=== PATIENT | male | born 1985 | race Caucasian/White ===

== ENCOUNTER 2020-11-15 12:11 | Outpatient (REF) | payer OTHER, SELFPAY ==
[2020-11-15 14:13] LABS: Glucose Urine UA NEG (NEG); Leukocyte Esterase Urine NEG (NEG); Nitrite Urine NEG (NEG); Specific Gravity - Urine <= 1.005 (1.005-1.025); Urine Blood NEG (NEG); Urine Ketones NEG (NEG); Urine Protein NEG (NEG-TRACE)
[2020-11-15 14:16] LABS: Appearance Urine CLEAR; Color Urine YELLOW
[2020-11-15 14:42] LABS: Alanine Aminotransferase 28 U/L (0-40); Albumin Level 4.5 g/dL (3.5-5.0); Alkaline Phosphatase 90 U/L (39-117); Anion Gap 16 (12-20); Aspartate Amino Transferase 24 U/L (5-37); Bilirubin Total 0.5 mg/dL (0.0-1.0); Blood Urea Nitrogen 12 mg/dL (9-16); Calcium 9.6 mg/dL (8.4-10.2); Carbon Dioxide 24 mmol/L (22-29); Chloride 105 mmol/L (96-108); Cholesterol 227 mg/dL; Estimated Glomerular Filt Rate > 60; Glucose Fasting 103 mg/dL (60-99); HDL Cholesterol 72 mg/dL; LDL Cholesterol Calculated 140 mg/dl; Potassium 4.7 mmol/L (3.3-5.1); Sodium 140 mmol/L (135-145); Total Protein 7.6 g/dL (6.5-8.0); Triglycerides 75 mg/dL
[2020-11-15 14:45] LABS: Syphilis Screen Nonreactive (Nonreactive)
[2020-11-15 14:46] LABS: TSH reflex Free T4 0.47 uIU/mL (0.32-4.0)
[2020-11-17 00:44] LABS: HIV AB/AG Nonreactive (Nonreactive)
[2020-11-18 08:12] LABS: Hepatitis B Surface Antigen Negative (Negative); ~HepC Num1 0.07 S/CO (0.00-0.79); ~Hepatitis C Antibody Nonreactive (Nonreactive)
[2020-11-18 08:49] LABS: HBc Num1 0.05 S/CO (0.00-0.79); HIV Num 1 0.09 S/CO (0.00-0.99); Hepatitis B Core Antibody Nonreactive (Nonreactive); ~Hepatitis B Surface Antibody REACTIVE (Nonreactive)
== END 2020-11-15 12:12 | disposition home or self-care (01) ==
LOC: HO.WFDLDS 12:11
PROVIDERS: Visit Provider Family Medicine
DX: Z00.00 Encounter for general adult medical examination without abnormal findings (principal); Z11.3 Encounter for screening for infections with a predominantly sexual mode of transmission; Z11.4 Encounter for screening for human immunodeficiency virus [HIV]
CPT/HCPCS: 36415; 80053; 80061; 81003; 84443; 86704; 86706; 86780; 86803; 87340; 87389

== ENCOUNTER 2021-03-12 11:22 | Outpatient (REF) | payer OTHER, SELFPAY ==
[2021-03-18 14:41] LABS: HSV 1 IgM IFA Negative (Negative); HSV 2 IgM IFA Negative (Negative)
== END 2021-03-12 11:23 | disposition home or self-care (01) ==
LOC: HO.WFDLDS 11:22
PROVIDERS: Visit Provider Family Medicine
DX: Z11.3 Encounter for screening for infections with a predominantly sexual mode of transmission (principal)
CPT/HCPCS: 36415; 86695; 86696

== ENCOUNTER 2021-10-21 10:49 | Outpatient (REF) | payer OTHER, SELFPAY ==
[2021-10-21 13:20] LABS: MANUAL DIFF FLAG NO
[2021-10-21 13:24] LABS: Basophils Percent Auto 0.2 % (0-2); Eosinophils Percent Auto 0.7 % (0-4); Hematocrit 48.6 % (42.0-52.0); Hemoglobin 16.6 g/dl (14.0-18.0); Imm Gran Abs Auto 0.02 X10*3/uL (0.00-0.03); Imm Gran Pct Auto 0.4 % (0.0-0.4); Lymphocytes Absolute Auto 1.3 X10*3/uL (1.2-4.9); Lymphocytes Percent Auto 22.2 % (20-40); Mean Corpuscular HGB Conc 34.2 g/dl (31.0-36.0); Mean Corpuscular Volume 99.6 fL (80.0-98.0); Mean Platelet Volume 9.7 fL (9.4-12.4); Monocytes Absolute Auto 0.4 X10*3/uL (0.1-1.2); Monocytes Percent Auto 7.2 % (2-11); Neutrophils Absolute Auto 3.9 x10*3/uL (2.0-8.3); Neutrophils Percent Auto 69.3 % (45-73); Platelet Count 244 X10*3/uL (160-400); Red Blood Count 4.88 X10*6/uL (4.60-5.80); Red Cell Distribution Width 11.8 % (11.0-16.0); White Blood Count 5.7 X10*3/uL (4.8-10.8)
[2021-10-21 13:35] LABS: Appearance Urine CLEAR; Color Urine YELLOW; Glucose Urine UA NEG (NEG); Leukocyte Esterase Urine NEG (NEG); Nitrite Urine NEG (NEG); PH 7.5 (5.0-8.0); Urine Blood NEG (NEG); Urine Ketones NEG (NEG); Urine Protein NEG (NEG-TRACE)
[2021-10-21 13:55] LABS: Alanine Aminotransferase 27 U/L (0-40); Albumin Level 4.3 g/dL (3.5-5.0); Alkaline Phosphatase 65 U/L (39-117); Anion Gap 12 (12-20); Aspartate Amino Transferase 19 U/L (5-37); Bilirubin Total 0.7 mg/dL (0.0-1.0); Blood Urea Nitrogen 5 mg/dL (9-16); Calcium 9.7 mg/dL (8.4-10.2); Carbon Dioxide 25 mmol/L (22-29); Chloride 108 mmol/L (96-108); Cholesterol 196 mg/dL; Estimated Glomerular Filt Rate > 60; Glucose Fasting 106 mg/dL (60-99); HDL Cholesterol 72 mg/dL; LDL Cholesterol Calculated 105 mg/dl; Potassium 4.2 mmol/L (3.3-5.1); Sodium 141 mmol/L (135-145); Total Protein 7.1 g/dL (6.5-8.0); Triglycerides 99 mg/dL
[2021-10-21 14:01] LABS: TSH reflex Free T4 0.43 uIU/mL (0.32-4.0)
[2021-10-21 14:45] LABS: Amphetamine Screen Urine Not Detected (Not Detect); Barbiturates, Urine Not Detected (Not Detect); Benzodiazepines Screen Urine Not Detected (Not Detect); Cannabinoid Screen Urine POSITIVE (Not Detect); Cocaine Screen Urine Not Detected (Not Detect); Fentanyl, urine Not Detected (Not Detect); Opiate Screen Urine Not Detected (Not Detect); Phencyclidine Screen Urine Not Detected (Not Detect)
[2021-10-27 07:50] LABS: Codeine, Ur NEGATIVE; Hydrocodone, Ur NEGATIVE; Hydromorphone, Ur NEGATIVE; Morphine, Ur NEGATIVE; Norhydrocodone, Ur NEGATIVE; Oxycodone, Ur NEGATIVE; Oxymorphone, Ur NEGATIVE
[2021-10-27 07:51] LABS: Noroxycodone, Ur NEGATIVE
== END 2021-10-21 10:50 | disposition home or self-care (01) ==
LOC: HO.WFDLDS 10:49
PROVIDERS: Visit Provider Family Medicine
DX: Z00.00 Encounter for general adult medical examination without abnormal findings (principal); F11.10 Opioid abuse, uncomplicated
CPT/HCPCS: 80053; 80061; 80307; 80364; 80365; 81003; 84443; 85025

== ENCOUNTER 2023-04-07 12:07 | Outpatient (REF) | payer OTHER, SELFPAY ==
[2023-04-07 14:35] LABS: Alanine Aminotransferase 21 U/L (0-40); Albumin Level 4.1 g/dL (3.5-5.0); Alkaline Phosphatase 63 U/L (39-117); Anion Gap 10 (12-20); Aspartate Amino Transferase 19 U/L (5-37); Bilirubin Total 0.4 mg/dL (0.0-1.0); Blood Urea Nitrogen 15 mg/dL (9-16); Calcium 9.2 mg/dL (8.4-10.2); Carbon Dioxide 24 mmol/L (22-29); Chloride 110 mmol/L (96-108); Cholesterol 208 mg/dL (<200); Estimated Glomerular Filt Rate > 60; Glucose Fasting 104 mg/dL (60-99); HDL Cholesterol 60 mg/dL (>40); LDL Cholesterol Calculated 129 mg/dL (<100); Potassium 4.4 mmol/L (3.3-5.1); Sodium 140 mmol/L (135-145); Triglycerides 98 mg/dL (<150)
[2023-04-07 14:42] LABS: Appearance Urine Clear; Color Urine Yellow; Glucose Urine UA Negative (Negative); Leukocyte Esterase Urine Negative (Negative); Nitrite Urine Negative (Negative); PH 5.5 (5.0-9.0); Urine Blood Negative (Negative); Urine Ketones Negative (Negative); Urine Protein Negative (Neg-Trace)
[2023-04-07 14:49] LABS: TSH reflex Free T4 0.43 uIU/mL (0.32-4.0)
[2023-04-07 14:59] LABS: Amphetamine Screen Urine Not Detected (Not Detect); Barbiturates, Urine Not Detected (Not Detect); Benzodiazepines Screen Urine Not Detected (Not Detect); Cannabinoid Screen Urine POSITIVE (Not Detect); Cocaine Screen Urine Not Detected (Not Detect); Fentanyl, urine Not Detected (Not Detect); Opiate Screen Urine Not Detected (Not Detect); Phencyclidine Screen Urine Not Detected (Not Detect)
[2023-04-07 15:07] LABS: Creatinine Urine 149.79 mg/dL; Microalbum/Creatinine Ratio Ur 3.3 ug/mg cr (<30)
== END 2023-04-07 12:08 | disposition home or self-care (01) ==
LOC: HO.WFDLDS 12:07
PROVIDERS: Visit Provider Family Medicine
DX: Z00.00 Encounter for general adult medical examination without abnormal findings (principal); I10 Essential (primary) hypertension; F41.9 Anxiety disorder, unspecified; F32.9 Major depressive disorder, single episode, unspecified; F41.1 Generalized anxiety disorder
CPT/HCPCS: 80053; 80061; 80307; 81003; 82043; 82570; 84443

== ENCOUNTER 2023-04-09 08:48 | Outpatient (AMB) | payer OTHER, SELFPAY ==
--- NOTE | 2023-04-09 08:51 | A.OFFPC_ITS ---
Vital Signs 04/09/23 08:52 Height 5 ft 11 in Weight 171 lb BMI 23.8 BP 126/80 Blood Pressure Location Rt brachial Position Sitting Respiration 12 Pulse 88 Pulse Source Pulse Oximeter Temp 97.6 F Temp Source Temporal Artery Scan Pulse Oximetry (%) 99 Oxygen Delivery Method Room Air Intake Visit Reasons: CPE with f/u labs and health maint. + f/u anxiety Intake Note: Patient currently doesn't have any concerns. Drapery Hemmer Automatic Required: No Accompanied by: Self / Same As Patient Allergies No Known Allergies Allergy (Verified 04/09/23 08:56) Tobacco use date assessed: 12/24/22 Dental Screening Dental Screen Date: 04/09/23 Did you have a dental visit in the last 12 months?: No Did you have a dental problem in the last 6 months where you did not have access to dental care?: No Was dental information given to patient?: Yes HPI CPE with f/u labs and health maint. + f/u anxiety HPI Details 37 y/o male presents for an extended exa m with f/u labs and health maintenance. Also f/u anxiety. Labs were drawn 04/07/23. Reviewed labs with pt. Triglycerides 98. TC 208. LDL 129. HDL 60. He is on clonazepam for his anxiety. Pt reports GERD daily. 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 1. Little interest or pleasure in doing things: more than half the days 2. Feeling down, depressed, or hopeless: more than half the days 3. Trouble falling or staying asleep, or sleeping too much: more than half the days 4. Feeling tired or having little energy: more than half the days 5. Poor appetite or overeating: more than half the days 6. Feeling bad about yourself - or that you are a failure or have let yourself or your family down: more than half the days 7. Trouble concentrating on things, such as reading the newspaper or watching television: more than half the days 8. Moving or speaking so slowly that other people could have noticed. Or the opposite - being so fidgety or restless that you have been moving around a lot more than usual: not at all 9. Thoughts that you would be better off or of hurting yourself in some way: not at all Total score: 14 Depression Screening Interpretation: Positive Source: Developed by Drs. Murray Jeter, Ann Vazquez, Kofi Edmondson and colleagues, with an educational charis from [employer]. Thrive Questionnaire Date Thrive assessed: 04/09/23 I am a: Patient What is your living situation today?: I have a steady place to live Within the past 12 months, did the food you bought not last and you didn't have the money to get more?: Never true Within the past 12 months, did you worry whether your food would run out before you got money to buy more?: Never true Do you have trouble paying for medicines?: No Do you have trouble getting transportation to medical appointments?: No Do you have trouble paying your heating and electricity bill?: No Do you have trouble taking care of your child, family member or friend?: No Do you have trouble with day-to-day activities such as bathing, preparing meals, shopping, managing finances, etc.?: No Are you currently unemployed and looking for a job?: No Are you interested in more education?: Yes Please select the resources that you would like help with: Education Currently or been in a relationship where the following occur: no concerns reported AUDIT C Alcohol Use Questionnaire (AUDIT-C) 1. How often do you have a drink containing alcohol?: 2-3 times a week 2. How many drinks containing alcohol do you have on a typical day when you are drinking?: 3 or 4 3. How often do you have six or more drinks on one occasion?: Less than monthly Total Score: 5 NETTE-7 AMB Questionnaire NETTE-7 Date NETTE - 7 assessed: 04/09/23 Feeling nervous, anxious, or on edge: 1 = Several days Not being able to stop or control worryin = Several days Worrying too much about different things: 3 = Nearly every day Trouble relaxin = Several days Being so restless that it is hard to sit still: 1 = Several days Becoming easily annoyed or irritable: 2 = More than half the days Feeling afraid as if something awful might happen: 1 = Several days Total NETTE-7 score (0-4 normal; 5-9 mild; 10-14 moderate; 15-21 severe): 10 Source: Developed by Drs. Murray Jeter, Ann Vazquez, Kofi Edmondson and colleagues, with an educational charis from [employer]. Review of Systems Const Denies chills, Denies fatigue, Denies fever(s), Denies headache(s) and Denies weakness Eyes Denies change in vision ENT Denies dizziness, Denies headache(s), Denies hearing loss, Denies nasal congestion, Denies sinus pain, Denies sinus pressure and Denies sore throat Card Denies chest pain, Denies lightheadedness, Denies dyspnea and Denies other (palpitations) Resp Denies cough, Denies dyspnea and Denies wheezing GI Denies abdominal pain, Denies melena, Denies hematochezia, Denies change in bowel habits, Denies dyspepsia and Denies nausea Denies hematuria and Denies dysuria Musc Denies abnormal gait, Denies myalgias, Denies arthralgias, Denies numbness and Denies tingling Skin/Breast Denies rash, Denies unusual bruising and Denies wounds Neuro Denies abnormal gait, Denies dizziness, Denies headache(s), Denies memory loss, Denies numbness, Denies Sensory deficit (Neuro), Denies tingling and Denies weakness Psych Reports anxiety, Denies depression and Denies memory loss Endo Denies cold intolerance, Denies fatigue, Denies heat intolerance, Denies polydipsia and Denies polyuria Ishmael/Lymph Denies easy bleeding and Denies easy bruising Aller/Immun Denies wheezing Physical exam (Primary Care) Vital Signs: Last Vital Signs Temp 97.6 F 04/09/23 08:52 Pulse 88 04/09/23 08:52 Resp 12 04/09/23 08:52 BP 126/80 04/09/23 08:52 Pulse Ox 99 04/09/23 08:52 Oxygen Delivery Method Room Air 04/09/23 08:52 BMI result Body Mass Index 23.8 Tobacco/Smoking Status: Tobacco use Status Tobacco use date assessed 12/24/22 04/09/23 09:02 Patient Tobacco Use Status Former Tobacco user 04/09/23 09:02 e-Cigarette/Vaping Use Never Used 04/09/23 09:02 PHQ-9: PHQ-9 Score PHQ-9: Total score 14 04/09/23 10:05 Depression Screening Interpretation: Positive Thrive Assessment: Date of Thrive Assessment Date Thrive assessed 04/09/23 04/09/23 09:02 Currently or been in a relationship where the following occur: no concerns reported Const General: no acute distress, well developed, alert and awake Nutritional Appearance: well nourished Orientation/consciousness: patient oriented x3 HENMT Head: Yes normocephalic and Yes atraumatic Ears: hearing grossly normal bilaterally and TM's normal bilaterally General nose exam: Normal external nose present and Normal nares present Mouth: Normal oral and palatal mucosa present and moist mucous membranes Teeth and gingiva: dentition normal Throat: Yes posterior oropharynx normal Eyes General: appearance normal, both eyes and all related structures Pupils: Equal, round and reactive pupils present and Pupil accommodation reflex normal EOM: EOMs intact bilaterally Neck Neck: Yes normal visual inspection, Yes no lymphadenopathy and Yes trachea midline Thyroid: Thyroid normal Carotids: no bruits Lymphatic: no lymphadenopathy noted Chest Chest palpation & inspection: normal inspection of the chest Resp Effort & Inspection: normal respiratory effort Auscultation: clear to auscultation bilaterally Cardio Rate: regular rate Rhythm: regular rhythm Heart sounds: S1 normal heart sound present, S2 normal heart sound present, no gallops, no murmurs and no rubs Bruits: no abdominal aortic bruits and no carotid bruits GI Palpation (GI): No Abdominal aortic bruit present, Soft to palpation, nontender, No hepatosplenomegaly present and No Rebound tenderness present Auscultation: normal bowel sounds General: Yes no CVA tenderness Back/Spine/Pelvis Back: no CVA tenderness Cervical Spine: cervical ROM normal and No Cervical spine tenderness Thoracic/Lumbar Spine: thoraco-lumbar ROM normal, No pain with thoraco-lumbar ROM, No thoracic spinal tenderness and No lumbar spinal tenderness Skin Lesions: no lesions Rashes: no rashes Trauma: no lacerations or abrasions Wounds: no wounds Nails: normal Neuro General: patient oriented x3 Cranial nerves: Yes Equal, round and reactive pupils present Cognition (Neuro): normal cognition Gait exam (Neuro): Normal gait present Motor exam (neuro): 5/5 motor strength present throughout Sensory Exam: No Sensory deficit (Neuro) Deep tendon reflexes (DTR's): Right patellar reflex intensity grade: 2+ and Left patellar reflex intensity grade: 2+ Extrem General: Yes normal to inspection and No edema Psych Other: Peculiar and anxious affect Appearance: grossly normal Affect: No normal affect Attitude: cooperative Thought process: Normal thought process present Assessment and Plan Assessment & Plan (1) Anxiety and depression: Code(s): F41.9 - Anxiety disorder, unspecified; F32.9 - Major depressive disorder, single episode, unspecified Plan: Ongoing anxiety and depression. Longstanding treatment with clonazepam monotherapy. Fairly stable but does have symptoms essentially every day. We discussed that when he is ready he can let me know and we would consider using I a medication in another class such as an SSRI for better long-term, daily management. Patient is apprehensive Will continue to discuss and follow-up with patient Urine drug screen did not show clonazepam in his urine. He is likely taking his medication. Likely just not being picked up on initial screening. Will use benzodiazepine GCMS testing which I suspect will show the presence of his medication. (2) GERD (gastroesophageal reflux disease): Code(s): K21.9 - Gastro-esophageal reflux disease without esophagitis Plan: Frequent GERD symptoms Trial omeprazole May need a referral to GI (3) Adult general medical exam: Code(s): Z00.00 - Encounter for general adult medical examination without abnormal findin gs Plan: 37-year-old male presents for extended exam Orders: Orders Drug Screen Urine Today F32.9 - Major depressive disorder, single episode, unspecified, F41.9 - Anxiety disorder, unspecified Benzodiazepine,GC/MS Urine Today F32.9 - Major depressive disorder, single episode, unspecified, F41.9 - Anxiety disorder, unspecified Medications: New omeprazole 20 mg PO DAILY 30 caps 2RF 30 days Coding Level of Care Code Est Pt Level 4 (64932) Diagnoses Anxiety and depression F41.9; F32.9 GERD (gastroesophageal reflux disease) K21.9 Adult general medical exam Z00.00
[2023-04-09 08:52] VITALS: BP 126/80; PULSE 88; RESP 12; TEMP 36.4; O2SAT 99; BMI 23.8
== END 2023-04-09 09:45 | disposition home or self-care (01) ==
PROVIDERS: PCP Family Medicine; Visit Provider Family Medicine
DX: Z00.00 Encounter for general adult medical examination without abnormal findings (principal); F41.9 Anxiety disorder, unspecified; F32.9 Major depressive disorder, single episode, unspecified; K21.9 Gastro-esophageal reflux disease without esophagitis
CPT/HCPCS: 99395

== ENCOUNTER 2023-04-09 10:05 | Outpatient (REF) | payer OTHER, SELFPAY ==
[2023-04-09 13:01] LABS: Amphetamine Screen Urine Not Detected (Not Detect); Barbiturates, Urine Not Detected (Not Detect); Benzodiazepines Screen Urine Not Detected (Not Detect); Cannabinoid Screen Urine POSITIVE (Not Detect); Cocaine Screen Urine Not Detected (Not Detect); Fentanyl, urine Not Detected (Not Detect); Opiate Screen Urine Not Detected (Not Detect); Phencyclidine Screen Urine Not Detected (Not Detect)
[2023-04-15 12:32] LABS: Alphahydroxymidazolam,GCMS Ur NEGATIVE; Alphahydroxytriazolam, GCMS Ur NEGATIVE; Alprazolam, GCMS Urine NEGATIVE; Flurazepam Metabolite,GCMS Ur NEGATIVE; Lorazepam GCMS Urine NEGATIVE; Nordiazepam, GCMS Urine NEGATIVE; Oxazepam, GCMS Urine NEGATIVE; Temazepam, GCMS Urine NEGATIVE
== END 2023-04-09 10:06 | disposition home or self-care (01) ==
LOC: HO.LAB 10:05
PROVIDERS: Visit Provider Family Medicine
DX: F41.9 Anxiety disorder, unspecified (principal); F32.9 Major depressive disorder, single episode, unspecified
CPT/HCPCS: 80307; 80346

== ENCOUNTER 2023-10-04 16:20 | Outpatient (AMB) | payer OTHER, SELFPAY ==
--- NOTE | 2023-10-04 16:32 | A.OFFPC_ITS ---
Vital Signs 10/04/23 16:33 10/04/23 17:29 Height 5 ft 11 in Weight 192 lb BMI 26.8 BP 156/93 H 148/82 H Blood Pressure Location Rt brachial Rt brachial Position Sitting Pulse 99 Pulse Oximetry (%) 98 Oxygen Delivery Method Room Air Intake Visit Reasons: f/u anxiety Intake Note: Patient is here to follow up on anxiety today. Allergies No Known Allergies Allergy (Verified 10/04/23 16:34) Tobacco use date assessed: 10/04/23 HPI f/u anxiety HPI Details 37 y/o male presents to f/u anxiety. He is on clonazepam therapy. Pt reports ongoing severe anxiety. Blood pressure today 156/93. 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 1. Little interest or pleasure in doing things: nearly every day 2. Feeling down, depressed, or hopeless: nearly every day 3. Trouble falling or staying asleep, or sleeping too much: nearly every day 4. Feeling tired or having little energy: nearly every day 5. Poor appetite or overeating: nearly every day 6. Feeling bad about yourself - or that you are a failure or have let yourself or your family down: nearly every day 7. Trouble concentrating on things, such as reading the newspaper or watching television: nearly every day 8. Moving or speaking so slowly that other people could have noticed. Or the opposite - being so fidgety or restless that you have been moving around a lot more than usual: not at all 9. Thoughts that you would be better off or of hurting yourself in some way: not at all Total score: 21 Depression Screening Interpretation: Positive Depression Screening Done: Yes Source: Developed by Drs. Murray Jeter, Kofi Smith and colleagues, with an educational charis from [employer]. Thrive Questionnaire Date Thrive assessed: 04/09/23 NETTE-7 AMB Questionnaire NETTE-7 Date NETTE - 7 assessed: 10/04/23 Feeling nervous, anxious, or on edge: 3 = Nearly every day Not being able to stop or control worryin = Nearly every day Worrying too much about different things: 3 = Nearly every day Trouble relaxin = Nearly every day Being so restless that it is hard to sit still: 3 = Nearly every day Becoming easily annoyed or irritable: 3 = Nearly every day Feeling afraid as if something awful might happen: 1 = Several days Total NETTE-7 score (0-4 normal; 5-9 mild; 10-14 moderate; 15-21 severe): 19 Source: Developed by Drs. Murray Jeter, Ann Vazquez, Kofi Edmondson and colleagues, with an educational charis from [employer]. Review of Systems Const Denies chills, Denies fatigue, Denies fever(s), Denies headache(s) and Denies weakness ENT Denies dizziness and Denies headache(s) Card Denies dyspnea Resp Denies cough, Denies dyspnea, Denies wheezing and Denies other (shortness of breath) Musc Denies numbness and Denies tingling Neuro Denies dizziness, Denies headache(s), Denies numbness, Denies tingling and Denies weakness Psych Reports anxiety and Reports depression Endo Denies fatigue Aller/Immun Denies wheezing Physical exam (Primary Care) Vital Signs: Last Vital Signs Pulse 99 10/04/23 16:33 BP 156/93 H 10/04/23 16:33 Pulse Ox 98 10/04/23 16:33 Oxygen Delivery Method Room Air 10/04/23 16:33 BMI result Body Mass Index 26.8 Tobacco/Smoking Status: Tobacco use Status Tobacco use date assessed 10/04/23 10/04/23 16:42 Patient Tobacco Use Status Former Tobacco user 10/04/23 16:42 e-Cigarette/Vaping Use Never Used 10/04/23 16:42 PHQ-9: PHQ-9 Score PHQ-9: Total score 21 10/04/23 17:27 Depression Screening Interpretation: Positive Thrive Assessment: Date of Thrive Assessment Date Thrive assessed 04/09/23 10/04/23 16:42 Const General: well developed; No acute distress Nutritional Appearance: well nourished Orientation/consciousness: patient oriented x3 HENMT Head: Yes normocephalic and Yes atraumatic Eyes General: appearance normal, both eyes and all related structures Pupils: Equal, round and reactive pupils present EOM: EOMs intact bilaterally Resp Effort & Inspection: normal respiratory effort Neuro General: patient oriented x3 and gait normal Cranial nerves: Yes Equal, round and reactive pupils present Psych Affect: normal affect Assessment and Plan Assessment & Plan (1) Anxiety and depression: Code(s): F41.9 - Anxiety disorder, unspecified; F32.9 - Major depressive disorder, single episode, unspecified Plan: Currently?just?on?clonazepam. Will?try?Abilify?and?he?can?use?this?at?bedtime?which?may?help?with?sleep We?can?follow-up?in?about?a?month (2) Elevated blood pressure reading: Code(s): R03.0 - Elevated blood-pressure reading, without diagnosis of hypertension Plan: Recommended?he?return?in?a?mon ?for?recheck?but?he?says?he?will?check?his?blood?pressures?in?the?community?an d?let?me?know?if?they?are?running?high. Will?follow-up?at?his?next?visit Medications: New aripiprazole (Abilify) 2 mg PO BEDTIME 30 days 30 tabs 2RF Coding Level of Care Code Est Pt Level 3 (97009) Diagnoses Anxiety and depression F41.9; F32.9 Elevated blood pressure reading R03.0
[2023-10-04 16:33] VITALS: BP 156/93; PULSE 99; O2SAT 98; BMI 26.8
[2023-10-04 17:29] VITALS: BP 148/82
== END 2023-10-04 17:56 | disposition home or self-care (01) ==
PROVIDERS: PCP Family Medicine; Visit Provider Family Medicine
DX: F41.9 Anxiety disorder, unspecified (principal); F32.9 Major depressive disorder, single episode, unspecified; R03.0 Elevated blood-pressure reading, without diagnosis of hypertension
CPT/HCPCS: 99213

== ENCOUNTER 2024-01-04 09:27 | Outpatient (AMB) | payer OTHER, SELFPAY ==
[2024-01-04 09:29] VITALS: BP 132/80; PULSE 98; O2SAT 98; BMI 27.8
--- NOTE | 2024-01-04 09:29 | A.OFFPC_ITS ---
Vital Signs 01/04/24 09:29 Height 5 ft 11 in Weight 199 lb 6 oz BMI 27.8 BP 132/80 Blood Pressure Location Lt brachial Position Sitting Pulse 98 Pulse Source Pulse Oximeter Pulse Oximetry (%) 98 Oxygen Delivery Method Room Air Intake Visit Reasons: f/u Anxiety & Depression Intake Note: Patient is here for follow up on anxiety and depression. Patient would like 90 day refills of Omeprazole, due to insurance reasons. Allergies No Known Allergies Allergy (Verified 01/04/24 09:33) Tobacco use date assessed: 01/04/24 Dental Screening Dental Screen Date: 01/04/24 Did you have a dental visit in the last 12 months?: Yes Did you have a dental problem in the last 6 months where you did not have access to dental care?: No Was dental information given to patient?: Patient has dentist HPI f/u Anxiety & Depression HPI Details 38 y/o male presents to f/u anxiety & de pression. Had continued clonazepam and added Abilify. PHQ-9 7, NETTE-7 7 today. Pt notes current medication regimen has been helping. 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 1. Little interest or pleasure in doing things: several days 2. Feeling down, depressed, or hopeless: several days 3. Trouble falling or staying asleep, or sleeping too much: several days 4. Feeling tired or having little energy: several days 5. Poor appetite or overeating: not at all 6. Feeling bad about yourself - or that you are a failure or have let yourself or your family down: not at all 7. Trouble concentrating on things, such as reading the newspaper or watching television: nearly every day 8. Moving or speaking so slowly that other people could have noticed. Or the opposite - being so fidgety or restless that you have been moving around a lot more than usual: not at all 9. Thoughts that you would be better off or of hurting yourself in some way: not at all Total score: 7 Depression Screening Interpretation: Positive Depression Screening Done: Yes 25777 - PHQ-9 Billing: Yes Source: Developed by Drs. Murray Jeter, Ann Vazquez, Kofi Edmondson and colleagues, with an educational charis from [employer]. Thrive Questionnaire Date Thrive assessed: 04/09/23 NETTE-7 AMB Questionnaire NETTE-7 Date NETTE - 7 assessed: 01/04/24 Feeling nervous, anxious, or on edge: 1 = Several days Not being able to stop or control worryin = Several days Worrying too much about different things: 1 = Several days Trouble relaxin = Several days Being so restless that it is hard to sit still: 1 = Several days Becoming easily annoyed or irritable: 1 = Several days Feeling afraid as if something awful might happen: 1 = Several days Total NETTE-7 score (0-4 normal; 5-9 mild; 10-14 moderate; 15-21 severe): 7 Source: Developed by Drs. Murray Jeter, Ann Vazquez, Kofi Edmondson and colleagues, with an educational charis from [employer]. NETTE-7 Assessment Billing NETTE-7 Assessment Tool: NETTE-7 Assessment 82352 Review of Systems Const Denies chills, Denies fatigue, Denies fever(s), Denies headache(s) and Denies weakness ENT Denies dizziness and Denies headache(s) Card Denies dyspnea Resp Denies cough, Denies dyspnea, Denies wheezing and Denies other (shortness of breath) Musc Denies numbness and Denies tingling Neuro Denies dizziness, Denies headache(s), Denies numbness, Denies tingling and Denies weakness Psych Reports anxiety and Reports depression Endo Denies fatigue Aller/Immun Denies wheezing Physical exam (Primary Care) Vital Signs: Last Vital Signs Pulse 98 01/04/24 09:29 BP 132/80 01/04/24 09:29 Pulse Ox 98 01/04/24 09:29 Oxygen Delivery Method Room Air 01/04/24 09:29 BMI result Body Mass Index 27.8 Tobacco/Smoking Status: Tobacco use Status Tobacco use date assessed 01/04/24 01/04/24 09:36 Patient Tobacco Use Status Former Tobacco user 01/04/24 09:36 e-Cigarette/Vaping Use Never Used 01/04/24 09:36 PHQ-9: PHQ-9 Score PHQ-9: Total score 7 01/04/24 09:40 Depression Screening Interpretation: Positive Thrive Assessment: Date of Thrive Assessment Date Thrive assessed 04/09/23 01/04/24 09:36 Const General: well developed; No acute distress Nutritional Appearance: well nourished Orientation/consciousness: patient oriented x3 HENMT Head: Yes normocephalic and Yes atraumatic Eyes General: appearance normal, both eyes and all related structures Pupils: Equal, round and reactive pupils present EOM: EOMs intact bilaterally Resp Effort & Inspection: normal respiratory effort Auscultation: clear to auscultation bilaterally Cardio Rate: regular rate Rhythm: regular rhythm Heart sounds: S1 normal heart sound present, S2 normal heart sound present, no gallops, no murmurs and no rubs Neuro General: patient oriented x3 and gait normal Cranial nerves: Yes Equal, round and reactive pupils present Psych Affect: normal affect Assessment and Plan Assessment & Plan (1) Anxiety and depression: Code(s): F41.9 - Anxiety disorder, unspecified; F32.9 - Major depressive disorder, single episode, unspecified Plan: Stable. Had?started?Abilify?at?last?visit?and?this?seems?to?have?improved?anxiety. Also?uses?clonazepam?as?prescribed Last?urine?drug?screen?was?appropriate Will?increase?Abilify?slightly.??He?will?let?me?know?if?that?causes? any?problems. Continue?clonazepam?as?prescribed (2) GERD (gastroesophageal reflux disease): Code(s): K21.9 - Gastro-esophageal reflux disease without esophagitis Plan: Taking?omeprazole?which?helps.??Increasing?script?to?90?day?prescription (3) Elevated fasting blood sugar: Code(s): R73.01 - Impaired fasting glucose Plan: Patient?had?elevated?blood?pressure?at?last?visit Improved?but?still?mildly?in?prehypertensive?range Encouraged?diet,?exercise?and?plenty?of?sleep We?can?follow?this Medications: Changed From aripiprazole (Abilify) 2 mg PO BEDTIME 30 days 30 tabs 2RF To aripiprazole 5 mg PO BEDTIME 90 days 90 tabs 2RF From omeprazole 20 mg PO DAILY 30 days 30 caps 2RF To omeprazole 20 mg PO DAILY 90 days 90 caps 3RF Refilled omeprazole 20 mg PO DAILY 30 days 30 caps 2RF clonazepam 0.5 mg PO BID 1 month PRN 60 tabs 0RF anxiety Coding Level of Care Code Est Pt Level 4 (93692) Diagnoses Anxiety and depression F41.9; F32.9 GERD (gastroesophageal reflux disease) K21.9 Elevated fasting blood sugar R73.01 Additional Codes NETTE-7 Assessment Billing - NETTE-7 Assessment Tool: NETTE-7 Assessment 45308 ([id number])
== END 2024-01-04 09:51 | disposition home or self-care (01) ==
PROVIDERS: PCP Family Medicine; Visit Provider Family Medicine
DX: F41.9 Anxiety disorder, unspecified (principal); F32.9 Major depressive disorder, single episode, unspecified; K21.9 Gastro-esophageal reflux disease without esophagitis; R73.01 Impaired fasting glucose
CPT/HCPCS: 96127; 99214

== ENCOUNTER 2024-04-07 08:41 | Outpatient (AMB) | payer OTHER, SELFPAY ==
--- NOTE | 2024-04-07 08:48 | A.OFFPC_ITS ---
Vital Signs 04/07/24 08:51 Height 5 ft 11 in Weight 199 lb 6 oz BMI 27.8 BP 110/80 Blood Pressure Location Rt brachial Position Sitting Respiration 16 Pulse 92 Pulse Source Pulse Oximeter Temp 97.9 F Temp Source Tympanic Pulse Oximetry (%) 98 Oxygen Delivery Method Room Air Intake Visit Reasons: f/u Anxiety & Depression meds Intake Note: f/u anxiety and depression Allergies No Known Allergies Allergy (Verified 04/07/24 08:48) Medication List - Last Reconciled 04/07/24 by Titus Tatum MD aripiprazole 5 mg PO BEDTIME 90 days clonazepam 0.5 mg PO BID PRN 1 month omeprazole 20 mg PO DAILY 90 days Tobacco use date assessed: 01/04/24 Dental Screening Dental Screen Date: 01/04/24 HPI f/u Anxiety & Depression meds HPI Details 38 y/o male presents to f/u anxiety/depr ession. He feels mood is fairly level though he notes mood is all over the place at times. Has difficulty with motivation and notes anxiety. Denies any SI/HI. He is on clonazepam 0.5mg. He notes he does not feel like it is doing much. PHQ-9 5, NETTE-7 18 today. HPI Comments History of Present Illness Details Documentation assistance for Titus Tatum MD, was provided by Kenrick Stock, Shuttle Fitting Supervisor on 04/07/2024 at 9:10 AM MARYLU. I, Dr. Tatum, have read, observed, and verified documentation. 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 1. Little interest or pleasure in doing things: not at all 2. Feeling down, depressed, or hopeless: several days 3. Trouble falling or staying asleep, or sleeping too much: several days 4. Feeling tired or having little energy: several days 5. Poor appetite or overeating: several days 6. Feeling bad about yourself - or that you are a failure or have let yourself or your family down: not at all 7. Trouble concentrating on things, such as reading the newspaper or watching television: several days 8. Moving or speaking so slowly that other people could have noticed. Or the opposite - being so fidgety or restless that you have been moving around a lot more than usual: not at all 9. Thoughts that you would be better off or of hurting yourself in some way: not at all Total score: 5 Depression Screening Interpretation: Positive Depression Screening Follow-up: New Medication prescribed Depression Screening Done: Yes 94242 - PHQ-9 Billing: Yes Source: Developed by Drs. Murray Jeter, Ann Vazquez, Kofi Edmondson and colleagues, with an educational charis from [employer]. Thrive Questionnaire Date Thrive assessed: 04/09/23 AUDIT C Alcohol Use Questionnaire (AUDIT-C) 2. How many drinks containing alcohol do you have on a typical day when you are drinking?: 1 or 2 3. How often do you have six or more drinks on one occasion?: Less than monthly Total Score: 1 NETTE-7 AMB Questionnaire NETTE-7 Date NETTE - 7 assessed: 04/07/24 Feeling nervous, anxious, or on edge: 3 = Nearly every day Not being able to stop or control worryin = Nearly every day Worrying too much about different things: 3 = Nearly every day Trouble relaxin = Nearly every day Being so restless that it is hard to sit still: 2 = More than half the days Becoming easily annoyed or irritable: 3 = Nearly every day Feeling afraid as if something awful might happen: 1 = Several days Total NETTE-7 score (0-4 normal; 5-9 mild; 10-14 moderate; 15-21 severe): 18 Source: Developed by Drs. Murray Jeter, Ann Vazquez, Kofi Edmondson and colleagues, with an educational charis from [employer]. NETTE-7 Assessment Billing NETTE-7 Assessment Tool: NETTE-7 Assessment 87617 Review of Systems Const Denies chills, Denies fatigue, Denies fever(s), Denies headache(s) and Denies weakness ENT Denies dizziness and Denies headache(s) Card Denies dyspnea Resp Denies cough, Denies dyspnea, Denies wheezing and Denies other (shortness of breath) Musc Denies numbness and Denies tingling Neuro Denies dizziness, Denies headache(s), Denies numbness, Denies tingling and Denies weakness Psych Reports anxiety and Reports depression Endo Denies fatigue Aller/Immun Denies wheezing Physical exam (Primary Care) Vital Signs: Last Vital Signs Temp 97.9 F 04/07/24 08:51 Pulse 92 04/07/24 08:51 Resp 16 04/07/24 08:51 BP 110/80 04/07/24 08:51 Pulse Ox 98 04/07/24 08:51 Oxygen Delivery Method Room Air 04/07/24 08:51 BMI result Body Mass Index 27.8 Tobacco/Smoking Status: Tobacco use Status Tobacco use date assessed 01/04/24 04/07/24 08:53 Patient Tobacco Use Status Former Tobacco user 04/07/24 08:53 e-Cigarette/Vaping Use Never Used 04/07/24 08:53 PHQ-9: PHQ-9 Score PHQ-9: Total score 5 04/07/24 08:53 Depression Screening Interpretation: Positive Depression Screening Follow-up: New Medication prescribed Thrive Assessment: Date of Thrive Assessment Date Thrive assessed 04/09/23 04/07/24 08:53 Const General: well developed; No acute distress Nutritional Appearance: well nourished Orientation/consciousness: patient oriented x3 HENMT Head: Yes normocephalic and Yes atraumatic Eyes General: appearance normal, both eyes and all related structures Pupils: Equal, round and reactive pupils present EOM: EOMs intact bilaterally Resp Effort & Inspection: normal respiratory effort Auscultation: clear to auscultation bilaterally Cardio Rate: regular rate Rhythm: regular rhythm Heart sounds: S1 normal heart sound present, S2 normal heart sound present, no gallops, no murmurs and no rubs Neuro General: patient oriented x3 and gait normal Cranial nerves: Yes Equal, round and reactive pupils present Psych Affect: normal affect Assessment and Plan Assessment & Plan (1) Anxiety and depression: Code(s): F41.9 - Anxiety disorder, unspecified; F32.9 - Major depressive disorder, single episode, unspecified Plan: Ongoing?anxiety?and?likely?depression. Patient?declines?therapist?though?I?advised?him?that?this?would?be?an?important? part?of?his?treatment. Will?discontinue?aripiprazole?as?he?does?not?think?this?is?helping. Will?change?clonazepam?to?lorazepam?as?he?does?not?think?the?clonazepam?is?helpi ng?much. Have?tried?numerous?medications?including?citalopram,?buspirone?and?others. Will?try?venlafaxine. Denies SI/HI Reiterated?to?patient?that?if?he?is?not?getting?much?relief?we?should?strongly?c onsider?a?referral?to?Psychiatry/therapy. Medications: New venlafaxine 75 mg PO BID 30 days 60 tabs 3RF lorazepam [facility] Verified. 0.5 mg PO BID 30 days PRN 60 tabs 0RF anxiety F32.9 - Major depressive disorder, single episode, unspecified, F41.9 - Anxiety disorder, unspecified Discontinued aripiprazole Discontinued Reason: Doctor's Order 5 mg PO BEDTIME 90 days 90 tabs 2RF clonazepam Discontinued Reason: Doctor's Order 0.5 mg PO BID 1 month PRN 60 tabs 0RF anxiety Coding Level of Care Code Est Pt Level 3 (41129) Diagnoses Anxiety and depression F41.9; F32.9 Additional Codes NETTE-7 Assessment Billing - NETTE-7 Assessment Tool: NETTE-7 Assessment 24270 ([id number])
[2024-04-07 08:51] VITALS: BP 110/80; PULSE 92; RESP 16; TEMP 36.6; O2SAT 98; BMI 27.8
== END 2024-04-07 09:21 | disposition home or self-care (01) ==
PROVIDERS: PCP Family Medicine; Visit Provider Family Medicine
DX: F41.9 Anxiety disorder, unspecified (principal); F32.9 Major depressive disorder, single episode, unspecified
CPT/HCPCS: 96127; 99213

== ENCOUNTER 2024-07-04 12:57 | Outpatient (REF) | payer OTHER, SELFPAY ==
[2024-07-04 14:20] LABS: MANUAL DIFF FLAG NO
[2024-07-04 14:26] LABS: Basophils Percent Auto 0.5 % (0-2); Eosinophils Absolute Auto 0.1 X10*3/uL (0.0-0.4); Eosinophils Percent Auto 0.6 % (0-4); Hematocrit 46.9 % (42.0-52.0); Hemoglobin 16.4 g/dl (14.0-18.0); Imm Gran Abs Auto 0.03 X10*3/uL (0.00-0.03); Imm Gran Pct Auto 0.4 % (0.0-0.4); Lymphocytes Absolute Auto 1.6 X10*3/uL (1.2-4.9); Lymphocytes Percent Auto 19.6 % (20-40); Mean Corpuscular Hemoglobin 33.3 pg (27.0-33.0); Mean Corpuscular Volume 95.1 fL (80.0-98.0); Mean Platelet Volume 9.1 fL (9.4-12.4); Monocytes Absolute Auto 0.5 X10*3/uL (0.1-1.2); Monocytes Percent Auto 6.4 % (2-11); Neutrophils Absolute Auto 5.9 x10*3/uL (2.0-8.3); Neutrophils Percent Auto 72.5 % (45-73); Platelet Count 255 X10*3/uL (160-400); Red Blood Count 4.93 X10*6/uL (4.60-5.80); Red Cell Distribution Width 11.6 % (11.0-16.0); White Blood Count 8.2 X10*3/uL (4.8-10.8)
[2024-07-04 15:26] LABS: Albumin Level 4.3 g/dL (3.5-5.0); Anion Gap 15 (12-20); Aspartate Amino Transferase 31 U/L (5-37); Bilirubin Total 0.4 mg/dL (0.0-1.0); Blood Urea Nitrogen 10 mg/dL (9-16); Calcium 9.5 mg/dL (8.4-10.2); Carbon Dioxide 23 mmol/L (22-29); Chloride 106 mmol/L (96-108); Cholesterol 254 mg/dL (<200); Estimated Glomerular Filt Rate > 60; Glucose Fasting 97 mg/dL (60-99); HDL Cholesterol 57 mg/dL (>40); LDL Cholesterol Calculated 162 mg/dL (<100); Potassium 3.7 mmol/L (3.3-5.1); Sodium 140 mmol/L (135-145); Total Protein 7.4 g/dL (6.5-8.0); Triglycerides 177 mg/dL (<150)
[2024-07-04 15:38] LABS: TSH reflex Free T4 0.52 uIU/mL (0.32-4.0)
[2024-07-04 16:17] LABS: Alanine Aminotransferase 44 U/L (0-40); Alkaline Phosphatase 89 U/L (39-117)
[2024-07-04 18:04] LABS: Amphetamine Screen Urine Not Detected (Not Detect); Barbiturates, Urine Not Detected (Not Detect); Benzodiazepines Screen Urine Not Detected (Not Detect); Buprenorphine Scr Not Detected (Not Detect); Cannabinoid Screen Urine POSITIVE (Not Detect); Cocaine Screen Urine Not Detected (Not Detect); Fentanyl, urine Not Detected (Not Detect); Methadone Screen, Urine Not Detected (Not Detect); Opiate Screen Urine Not Detected (Not Detect); Oxycodone Screen Urine Not Detected (Not Detect); Phencyclidine Screen Urine Not Detected (Not Detect)
[2024-07-04 18:16] LABS: Creatinine Urine 241.14 mg/dL; Microalbum/Creatinine Ratio Ur 4.1 ug/mg cr (<30)
[2024-07-04 18:21] LABS: Appearance Urine Clear; Color Urine Yellow; Glucose Urine UA Negative (Negative); Leukocyte Esterase Urine Negative (Negative); Nitrite Urine Negative (Negative); Specific Gravity - Urine 1.025 (1.005-1.025); Urine Blood Negative (Negative); Urine Ketones Negative (Negative); Urine Protein Trace mg/dL (Neg-Trace)
[2024-07-07 09:43] LABS: Alphahydroxymidazolam,GCMS Ur NEGATIVE; Alphahydroxytriazolam, GCMS Ur NEGATIVE; Alprazolam, GCMS Urine NEGATIVE; Flurazepam Metabolite,GCMS Ur NEGATIVE; Lorazepam GCMS Urine NEGATIVE; Nordiazepam, GCMS Urine NEGATIVE; Oxazepam, GCMS Urine NEGATIVE; Temazepam, GCMS Urine NEGATIVE
[2024-07-07 09:44] LABS: Aminoclonazepam, GCMS Urine 366 (H)
== END 2024-07-04 12:58 | disposition home or self-care (01) ==
LOC: HO.WFDLDS 12:57
PROVIDERS: Visit Provider Family Medicine
DX: Z00.00 Encounter for general adult medical examination without abnormal findings (principal); F41.9 Anxiety disorder, unspecified; F32.9 Major depressive disorder, single episode, unspecified; I10 Essential (primary) hypertension
CPT/HCPCS: 80053; 80061; 80307; 80346; 81003; 82043; 82570; 84443; 85025

== ENCOUNTER 2024-07-14 08:27 | Outpatient (AMB) | payer OTHER, SELFPAY ==
--- NOTE | 2024-07-14 08:37 | MHC.PC.OV ---
Vital Signs 07/14/24 08:39 Height 5 ft 11 in Weight 202 lb 4 oz BMI 28.2 BP 118/74 Blood Pressure Location Lt brachial Position Sitting Respiration 14 Pulse 104 H Pulse Source Pulse Oximeter Temp 97.8 F Temp Source Oral Pulse Oximetry (%) 99 Oxygen Delivery Method Room Air Intake Visit Reasons: f/u anxiety/depression Intake Note: Anxiety and depression Allergies No Known Allergies Allergy (Verified 07/14/24 08:38) Tobacco use date assessed: 01/04/24 Dental Screening Dental Screen Date: 01/04/24 HPI f/u anxiety/depression HPI Details 38 y/o male presents to f/u anxiety/depression. Changed clonazepam to lorazepam as he did not think clonazepam has been helping much. Also trialing venlafaxine. Labs drawn 07/04/24. Reviewed labs with pt. Elevated ALT of 44. Triglycerides 177. TC 254. LDL 162. HDL 57. TSH 0.52. PHQ-9 7, NETTE-7 7 today. Notes he has not had good experiences with therapists in the past. [facility] Medical History ADHD (attention deficit hyperactivity disorder) FHx: bilateral hip replacements Surgical History No pertinent past surgical history Family History (Updated 01/04/24 @ 09:35 by Kaylah Ruiz CMA) Father Cancer High blood pressure Mother High blood pressure Social History Housing: Apartment Alcohol intake: current Patient Tobacco Use Status: Former Tobacco user Cigarette Packs Per Day: 1.5 Cigarettes Per Day: 10 e-Cigarette/Vaping Use: Never Used Second Hand Smoke Exposure: No service: No Current occupational status: employed 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 1. Little interest or pleasure in doing things: several days 2. Feeling down, depressed, or hopeless: several days 3. Trouble falling or staying asleep, or sleeping too much: several days 4. Feeling tired or having little energy: several days 5. Poor appetite or overeating: several days 6. Feeling bad about yourself - or that you are a failure or have let yourself or your family down: several days 7. Trouble concentrating on things, such as reading the newspaper or watching television: several days 8. Moving or speaking so slowly that other people could have noticed. Or the opposite - being so fidgety or restless that you have been moving around a lot more than usual: not at all 9. Thoughts that you would be better off or of hurting yourself in some way: not at all Total score: 7 Source: Developed by Drs. Murray Jeter, Ann Vazquez, Kofi Edmondson and colleagues, with an educational charis from [employer]. Thrive Questionnaire Date Thrive assessed: 07/07/24 I am a: Patient What is your living situation today?: I have a steady place to live Within the past 12 months, did the food you bought not last and you didn't have the money to get more?: Never true Within the past 12 months, did you worry whether your food would run out before you got money to buy more?: Never true Do you have trouble paying for medicines?: No Do you have trouble getting transportation to medical appointments?: No Do you have trouble paying your heating and electricity bill?: No Do you have trouble taking care of your child, family member or friend?: No Do you have trouble with day-to-day activities such as bathing, preparing meals, shopping, managing finances, etc.?: No Are you currently unemployed and looking for a job?: I choose not to answer this question Are you interested in more education?: Yes Please select the resources that you would like help with: None Currently or been in a relationship where the following occur: No concerns reported THRIVE Score: 0 AUDIT C Alcohol Use Questionnaire (AUDIT-C) 1. How often do you have a drink containing alcohol?: 2-3 times a week Total Score: 3 NETTE-7 AMB Questionnaire NETTE-7 Date NETTE - 7 assessed: 04/07/24 Feeling nervous, anxious, or on edge: 1 = Several days Not being able to stop or control worryin = Several days Worrying too much about different things: 1 = Several days Trouble relaxin = Several days Being so restless that it is hard to sit still: 1 = Several days Becoming easily annoyed or irritable: 1 = Several days Feeling afraid as if something awful might happen: 1 = Several days Total NETTE-7 score (0-4 normal; 5-9 mild; 10-14 moderate; 15-21 severe): 7 Source: Developed by Drs. Murray Jeter, Ann Vazquez, Kofi Edmondson and colleagues, with an educational charis from [employer]. Review of Systems Const Denies chills, Denies fatigue, Denies fever(s), Denies headache(s) and Denies weakness ENT Denies dizziness and Denies headache(s) Card Denies dyspnea Resp Denies cough, Denies dyspnea, Denies wheezing and Denies other (shortness of breath) Musc Denies numbness and Denies tingling Neuro Denies dizziness, Denies headache(s), Denies numbness, Denies tingling and Denies weakness Psych Reports anxiety and Reports depression Endo Denies fatigue Aller/Immun Denies wheezing Physical exam (Primary Care) Vital Signs: Last Vital Signs Temp 97.8 F 07/14/24 08:39 Pulse 104 H 07/14/24 08:39 Resp 14 07/14/24 08:39 BP 118/74 07/14/24 08:39 Pulse Ox 99 07/14/24 08:39 Oxygen Delivery Method Room Air 07/14/24 08:39 BMI result Body Mass Index 28.2 Tobacco/Smoking Status: Tobacco use Status Tobacco use date assessed 01/04/24 07/14/24 08:43 Patient Tobacco Use Status Former Tobacco user 07/14/24 08:43 e-Cigarette/Vaping Use Never Used 07/14/24 08:43 PHQ-9: PHQ-9 Score PHQ-9: Total score 7 07/14/24 08:43 Thrive Assessment: Date of Thrive Assessment Date Thrive assessed 07/07/24 07/14/24 08:43 Currently or been in a relationship where the following occur: No concerns reported Const General: well developed; No acute distress Nutritional Appearance: well nourished Orientation/consciousness: patient oriented x3 HENMT Head: Yes normocephalic and Yes atraumatic Eyes General: appearance normal, both eyes and all related structures Pupils: Equal, round and reactive pupils present EOM: EOMs intact bilaterally Resp Effort & Inspection: normal respiratory effort Auscultation: clear to auscultation bilaterally Cardio Rate: regular rate Rhythm: regular rhythm Heart sounds: S1 normal heart sound present, S2 normal heart sound present, no gallops, no murmurs and no rubs Neuro General: patient oriented x3 and gait normal Cranial nerves: Yes Equal, round and reactive pupils present Psych Affect: normal affect Coding Level of Care Code Est Pt Level 4 (09416) Diagnoses Anxiety and depression F41.9; F32.9 Hyperlipidemia E78.5 Elevated ALT measurement R74.01 Assessment & Plan Assessment & Plan (1) Anxiety and depression: Code(s): F41.9 - Anxiety disorder, unspecified; F32.9 - Major depressive disorder, single episode, unspecified Category: Medical Plan: Ongoing?mild?anxiety/depression Patient?says?he?has?had?good?experiences?with?therapist?in?the?past.??I?did?offer?to?make?it?a?connection?with?a?therapist?if?he?is?interested.??He?will?let?me?know?if?wants?go?forward?this. He?has?tried?other?medications?the?past?as?well. Continue?clonazepam?as?prescribed Also,?urine?drug?screen?was?as?expected/appropriate (2) Hyperlipidemia: Code(s): E78.5 - Hyperlipidemia, unspecified Category: Medical Plan: Lipids?are?too?high. He?has?gained?weight?and?I?encouraged?weight?loss,?exercise?in?a?diet?low?in?saturated?fats?and?cholesterol We?will?recheck?in?a?few?months.??We?did?discuss?that?if?he?is?unable?bring?his?cholesterol?down?we?should?discuss?medication. (3) Elevated ALT measurement: Code(s): R74.01 - Elevation of levels of liver transaminase levels Category: Medical Plan: Mild?elevation?in?liver?enzymes.??As?mentioned?above,?patient?has?gained?weight?in?the?past. He?will?work?on?weight?loss,?good?hydration?and?we?will?recheck?again?with?his?next?blood?draw. If?liver?enzymes?are?the?same?or?higher,?will?check?an?ultrasound Orders: Orders Microalbumin, Random (w Creat) Today I10 - Essential (primary) hypertension UA and rflx microscopic Today Z00.00 - Encounter for general adult medical examination without abnormal findings Comprehensive [place]ctor. Panel Fast Today Z00.00 - Encounter for general adult medical examination without abnormal findings Lipid Panel Today Z00.00 - Encounter for general adult medical examination without abnormal findings
[2024-07-14 08:39] VITALS: BP 118/74; PULSE 104; RESP 14; TEMP 36.6; O2SAT 99; BMI 28.2
== END 2024-07-14 09:20 | disposition home or self-care (01) ==
PROVIDERS: PCP Family Medicine; Visit Provider Family Medicine
DX: F41.9 Anxiety disorder, unspecified (principal); F32.9 Major depressive disorder, single episode, unspecified; E78.5 Hyperlipidemia, unspecified; R74.01 Elevation of levels of liver transaminase levels

== ENCOUNTER → 2024-07-14 08:27 | Outpatient (BNVA) | payer OTHER, SELFPAY | PROVIDERS: PCP Family Medicine; Visit Provider Family Medicine | DX: Z00.00 Encounter for general adult medical examination without abnormal findings (principal); F41.9 Anxiety disorder, unspecified; F32.9 Major depressive disorder, single episode, unspecified; R74.01 Elevation of levels of liver transaminase levels; E78.5 Hyperlipidemia, unspecified; I10 Essential (primary) hypertension | CPT/HCPCS: 96127; 99212 ==

== ENCOUNTER 2024-10-11 12:55 | Outpatient (REF) | payer OTHER, SELFPAY ==
[2024-10-11 14:23] LABS: Appearance Urine Clear; Color Urine Yellow; Glucose Urine UA Negative (Negative); Leukocyte Esterase Urine Negative (Negative); Nitrite Urine Negative (Negative); Urine Blood Negative (Negative); Urine Ketones Negative (Negative); Urine Protein Negative (Neg-Trace)
[2024-10-11 14:35] LABS: Alanine Aminotransferase 34 U/L (0-40); Albumin Level 4.2 g/dL (3.5-5.0); Alkaline Phosphatase 82 U/L (39-117); Anion Gap 13 (12-20); Aspartate Amino Transferase 27 U/L (5-37); Bilirubin Total 0.8 mg/dL (0.0-1.0); Blood Urea Nitrogen 12 mg/dL (9-16); Calcium 9.4 mg/dL (8.4-10.2); Carbon Dioxide 25 mmol/L (22-29); Chloride 105 mmol/L (96-108); Cholesterol 248 mg/dL (<200); Estimated Glomerular Filt Rate > 60; Glucose Fasting 94 mg/dL (60-99); HDL Cholesterol 54 mg/dL (>40); LDL Cholesterol Calculated 120 mg/dL (<100); Potassium 3.7 mmol/L (3.3-5.1); Sodium 139 mmol/L (135-145); Total Protein 7.8 g/dL (6.5-8.0); Triglycerides 374 mg/dL (<150)
[2024-10-11 15:25] LABS: Creatinine Urine 163.34 mg/dL; Microalbum/Creatinine Ratio Ur 4.2 ug/mg cr (<30)
== END 2024-10-11 12:56 | disposition home or self-care (01) ==
LOC: HO.WFDLDS 12:55
PROVIDERS: Visit Provider Family Medicine
DX: Z00.00 Encounter for general adult medical examination without abnormal findings (principal); I10 Essential (primary) hypertension
CPT/HCPCS: 36415; 80053; 80061; 81003; 82043; 82570

== ENCOUNTER 2024-10-13 09:21 | Outpatient (AMB) | payer OTHER, SELFPAY ==
--- NOTE | 2024-10-13 09:42 | A.OFFPC_ITS ---
Vital Signs 10/13/24 09:46 Height 5 ft 11 in Weight 202 lb 8 oz BMI 28.2 BP 120/64 Blood Pressure Location Rt brachial Position Sitting Respiration 14 Pulse 91 Pulse Source Pulse Oximeter Temp 98.6 F Temp Source Oral Pulse Oximetry (%) 99 Oxygen Delivery Method Room Air Intake Visit Reasons: f/u anxiety/depression, labs Intake Note: patient is scheduled for anxiety and depression w/lab review Platform Beater Required: No Allergies No Known Allergies Allergy (Verified 10/13/24 09:43) Medication List - Last Reconciled 10/13/24 by Titus Tatum MD clonazepam 0.5 mg PO BID PRN 1 month omeprazole 20 mg PO DAILY 90 days Tobacco use date assessed: 01/04/24 Dental Screening Dental Screen Date: 01/04/24 HPI f/u anxiety/depression, labs HPI Details 38 y/o male presents to f/u anxiety/depr ession, HLD, mildly elevated liver enzymes. Labs drawn 10/11/24. Reviewed labs with pt. Triglycerides 374. TC 248. LDL improved from 162 to 120. HDL 54. Liver enzymes are fine - AST 27, ALT 34. PHQ-9 7, NETTE-7 7 today. He is on clonazepam. Notes daytime fatigue, difficulty sleeping. 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 1. Little interest or pleasure in doing things: several days 2. Feeling down, depressed, or hopeless: several days 3. Trouble falling or staying asleep, or sleeping too much: several days 4. Feeling tired or having little energy: several days 5. Poor appetite or overeating: several days 6. Feeling bad about yourself - or that you are a failure or have let yourself or your family down: several days 7. Trouble concentrating on things, such as reading the newspaper or watching television: several days 8. Moving or speaking so slowly that other people could have noticed. Or the opposite - being so fidgety or restless that you have been moving around a lot more than usual: not at all 9. Thoughts that you would be better off or of hurting yourself in some way: not at all Total score: 7 Depression Screening Interpretation: Positive Depression Screening Done: Yes 51625 - PHQ-9 Billing: Yes Source: Developed by Drs. Murray Jeter, Ann Vazquez, Kofi Edmondson and colleagues, with an educational charis from [employer]. Thrive Questionnaire Date Thrive assessed: 10/13/24 I am a: Patient What is your living situation today?: I have a steady place to live Within the past 12 months, did the food you bought not last and you didn't have the money to get more?: Never true Within the past 12 months, did you worry whether your food would run out before you got money to buy more?: Never true Do you have trouble paying for medicines?: No Do you have trouble getting transportation to medical appointments?: No Do you have trouble paying your heating and electricity bill?: No Do you have trouble taking care of your child, family member or friend?: No Do you have trouble with day-to-day activities such as bathing, preparing meals, shopping, managing finances, etc.?: No Are you currently unemployed and looking for a job?: I choose not to answer this question Are you interested in more education?: No Please select the resources that you would like help with: None Currently or been in a relationship where the following occur: No concerns reported THRIVE Score: 0 AUDIT C Alcohol Use Questionnaire (AUDIT-C) 1. How often do you have a drink containing alcohol?: 2-3 times a week 2. How many drinks containing alcohol do you have on a typical day when you are drinking?: 1 or 2 3. How often do you have six or more drinks on one occasion?: Never Total Score: 3 Score Reviewed/Action Taken: Yes NETTE-7 AMB Questionnaire NETTE-7 Date NETTE - 7 assessed: 10/13/24 Feeling nervous, anxious, or on edge: 1 = Several days Not being able to stop or control worryin = Several days Worrying too much about different things: 1 = Several days Trouble relaxin = Several days Being so restless that it is hard to sit still: 1 = Several days Becoming easily annoyed or irritable: 1 = Several days Feeling afraid as if something awful might happen: 1 = Several days Total NETTE-7 score (0-4 normal; 5-9 mild; 10-14 moderate; 15-21 severe): 7 Source: Developed by Drs. Murray Jeter, Ann Vazquez, Kofi Edmondson and colleagues, with an educational charis from [employer]. NETTE-7 Assessment Billing NETTE-7 Assessment Tool: NETTE-7 Assessment 12170 Review of Systems Const Denies chills, Denies fatigue, Denies fever(s), Denies headache(s) and Denies weakness ENT Denies dizziness and Denies headache(s) Card Denies dyspnea Resp Denies cough, Denies dyspnea, Denies wheezing and Denies other (shortness of breath) Musc Denies numbness and Denies tingling Neuro Denies dizziness, Denies headache(s), Denies numbness, Denies tingling and Denies weakness Psych Denies anxiety and Denies depression Endo Denies fatigue Aller/Immun Denies wheezing Physical exam (Primary Care) Vital Signs: Last Vital Signs Temp 98.6 F 10/13/24 09:46 Pulse 91 10/13/24 09:46 Resp 14 10/13/24 09:46 BP 120/64 10/13/24 09:46 Pulse Ox 99 10/13/24 09:46 Oxygen Delivery Method Room Air 10/13/24 09:46 BMI result Body Mass Index 28.2 Tobacco/Smoking Status: Tobacco use Status Tobacco use date assessed 01/04/24 10/13/24 09:49 Patient Tobacco Use Status Former Tobacco user 10/13/24 09:49 e-Cigarette/Vaping Use Never Used 10/13/24 09:49 PHQ-9: PHQ-9 Score PHQ-9: Total score 7 10/13/24 09:54 Depression Screening Interpretation: Positive Thrive Assessment: Date of Thrive Assessment Date Thrive assessed 10/13/24 10/13/24 09:49 Currently or been in a relationship where the following occur: No concerns reported Const General: well developed; No acute distress Nutritional Appearance: well nourished Orientation/consciousness: patient oriented x3 HENMT Head: Yes normocephalic and Yes atraumatic Eyes General: appearance normal, both eyes and all related structures Pupils: Equal, round and reactive pupils present EOM: EOMs intact bilaterally Resp Effort & Inspection: normal respiratory effort Neuro General: patient oriented x3 and gait normal Cranial nerves: Yes Equal, round and reactive pupils present Psych Affect: normal affect Coding Level of Care Code Est Pt Level 4 (98955) Diagnoses Anxiety and depression F41.9; F32.9 Hyperlipidemia E78.5 Elevated ALT measurement R74.01 Hypersomnia G47.10 Additional Codes NETTE-7 Assessment Billing - NETTE-7 Assessment Tool: NETTE-7 Assessment 93948 ([id number]) PHQ-9 - 71456 - PHQ-9 Billing: Yes ([id number]) Assessment & Plan Assessment & Plan (1) Anxiety and depression: Code(s): F41.9 - Anxiety disorder, unspecified; F32.9 - Major depressive disorder, single episode, unspecified Category: Medical Plan: Chronic?anxiety?and?depression?in?patient?feels?he?should?have?a?therap ist?and?or?specialist?provider. No?SI/HI Has?tried?numerous?medications?in?the?past Currently?just?on?clonazepam Referred?to?[facility]?patient's?psychiatric?consult?team (2) Hyperlipidemia: Code(s): E78.5 - Hyperlipidemia, unspecified Category: Medical Plan: LDL?cholesterol?much?improved?with?dietary?changes Triglycerides?have?risen?and?this?is?likely?transient?secondary?to?dietary?[place] es. Encouraged?him?to?continue?working?on?decreased?saturated? fats?and?cholesterol?in?diet?but?also?watch?sugars?and?starches Will?recheck?a?few?months?next?blood?draw (3) Elevated ALT measurement: Code(s): R74.01 - Elevation of levels of liver transaminase levels Category: Medical Plan: This?has?resolved (4) Hypersomnia: Code(s): G47.10 - Hypersomnia, unspecified Category: Medical Plan: Patient?has?been?having?increased?difficulty?falling?asleep?and?staying?asleep?a nd?also?has?daytime?sleepiness Referred?to?Sleep?Medicine?for?further?evaluation He?would?like?to?try?a?medication?to?help?sleep.??Will?try?some?trazodone. Orders: Orders Lipid Panel Today E78.5 - Hyperlipidemia, unspecified, Z00.00 - Encounter for general adult medical examination without abnormal findings Basic Metabolic Panel Fasting Today E78.5 - Hyperlipidemia, unspecified Referrals Sleep Medicine Referral G47.10 - Hypersomnia, unspecified Psychiatry Outpatient Consultation Service F32.9 - Major depressive disorder, single episode, unspecified, F41.9 - Anxiety disorder, unspecified Medications: New trazodone 50 mg PO BEDTIME PRN 30 tabs 0RF sleep 30 days
[2024-10-13 09:46] VITALS: BP 120/64; PULSE 91; RESP 14; TEMP 37; O2SAT 99; BMI 28.2
--- OUTSIDE RECORDS SUMMARY | 2024-10-13 10:32 | XMS_ITS | Clinical Summary ---
Author Organization [facility] Address [address] [place] [address] Care Team Providers Care Cyanide Pot Tender Name Role Phone Unavailable Primary Care Provider Unavailabl e Social History Tobacco Use Types Packs/Day Years Used Date Smoking Tobacco: Never Assessed Sex and Gender Information Value Date Recorded Sex Assigned at Not on file Gender Identity Not on file Sexual Orientation Not on file Plan of Treatment Not on file [employer] Workers Comp Self 1985 [address] [place] [address]
--- OUTSIDE RECORDS SUMMARY | 2024-10-13 10:32 | XMS_ITS | Clinical Summary ---
Author Organization [facility] Address [address] [place] [address] Care Team Providers Care Patrol Supervisor Name Role Phone Unavailable Primary Care Provider Unavailabl e Social History Tobacco Use Types Packs/Day Years Used Date Smoking Tobacco: Never Assessed Sex and Gender Information Value Date Recorded Sex Assigned at Not on file Gender Identity Not on file Sexual Orientation Not on file Last Filed Vital Signs Vital Sign Reading Time Taken Comments Blood Pressure 126/84 12/07/2014 11:04 AM EDT Pulse 120 12/07/2014 11:04 AM EDT Temperature - - Respiratory Rate 16 12/07/2014 11:04 AM EDT Oxygen Saturation - - Inhaled Oxygen Concentration - - Weight 63.6 kg (140 lb 3.1 oz) 12/07/2014 11:04 AM EDT Height - - Body Mass Index - - Plan of Treatment Health Maintenance Due Date Last Done Comments Hepatitis C Virus Screening 1985 HIV Screening 1998 DTaP/Tdap/Td Vaccines (1 - Tdap) 2004 Hepatitis B Vaccines (1 of 3 - 19+ 3-dose series) 2004 COVID-19 Vaccine (2023-2 5 season) 2024 HPV Vaccines Aged Out No longer eligi ble based on patient's age to complete this topic Pneumococcal Vaccine: Pediat rivka (0-5 Years) and At-Risk Patients (6 to 49 Years) Aged Out No longer eligible b ased on patient's age to complete this topic
== END 2024-10-13 10:12 | disposition home or self-care (01) ==
LOC: HO.HMCFM 09:22
PROVIDERS: PCP Family Medicine; Visit Provider Family Medicine
DX: F41.9 Anxiety disorder, unspecified (principal); F32.9 Major depressive disorder, single episode, unspecified; E78.5 Hyperlipidemia, unspecified; R74.01 Elevation of levels of liver transaminase levels; G47.10 Hypersomnia, unspecified

== ENCOUNTER → 2024-10-13 09:21 | Outpatient (BNVA) | payer OTHER, SELFPAY | PROVIDERS: PCP Family Medicine; Visit Provider Family Medicine | DX: F41.9 Anxiety disorder, unspecified (principal); F32.9 Major depressive disorder, single episode, unspecified; E78.5 Hyperlipidemia, unspecified; R74.01 Elevation of levels of liver transaminase levels; G47.10 Hypersomnia, unspecified | CPT/HCPCS: 96127; 99212 ==

== ENCOUNTER 2024-11-06 10:43 | Outpatient (REF) | payer OTHER, SELFPAY ==
--- NOTE | 2024-11-06 12:34 | ECG_ITS ---
Test Reason : z782.89 Blood Pressure : */* mmHG Vent. Rate : 101 BPM Atrial Rate : 101 BPM P-R Int : 140 ms QRS Dur : 76 ms QT Int : 332 ms P-R-T Axes : 73 67 62 degrees QTcB Int : 430 ms Sinus tachycardia Otherwise normal ECG No previous ECGs available Referred By: Divya Herbert Electronically Signed By: MIK GARCIA MD
[2024-11-06 13:48] LABS: Magnesium 2.3 mg/dL (1.6-2.6)
[2024-11-06 14:03] LABS: Vitamin D 25-OH Total 20.5 ng/mL (>30)
[2024-11-06 14:16] LABS: Folate 8.9 ng/mL (> or = 4.0); Vitamin B12 216 pg/mL (200-900)
--- OUTSIDE RECORDS SUMMARY | 2024-11-06 14:17 | XMS_ITS | Clinical Summary ---
Author Organization [facility] Address [address] [place] [address] Care Team Providers Care Fabricating Machine Operator Name Role Phone Unavailable Primary Care Provider Unavailabl e Social History Tobacco Use Types Packs/Day Years Used Date Smoking Tobacco: Never Assessed Sex and Gender Information Value Date Recorded Sex Assigned at Not on file Gender Identity Not on file Sexual Orientation Not on file Plan of Treatment Not on file [employer]ider Workers Comp Self 1985 [address] [place] [address]
--- OUTSIDE RECORDS SUMMARY | 2024-11-06 14:17 | XMS_ITS | Clinical Summary ---
Author Organization [facility] Address [address] [place] [address] Care Team Providers Care President Practicing Urologist Name Role Phone Unavailable Primary Care Provider [...]
[2024-11-12 15:53] LABS: Vitamin B6 7.1 ng/mL (2.1-21.7)
[2024-11-15 15:59] LABS: Vitamin B1 9 nmol/L (8-30)
== END 2024-11-06 10:44 | disposition home or self-care (01) ==
LOC: HO.LAB 10:43
PROVIDERS: PCP Family Medicine; Visit Provider Clinical Nurse Specialist Psychiatric/Mental Health
DX: F32.9 Major depressive disorder, single episode, unspecified (principal); F41.9 Anxiety disorder, unspecified; Z72.89 Other problems related to lifestyle
CPT/HCPCS: 36415; 82306; 82607; 82746; 83735; 84207; 84425; 90792; 93005

== ENCOUNTER 2024-11-06 10:43 | Outpatient (AMB) | payer OTHER, SELFPAY ==
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
--- OUTSIDE RECORDS SUMMARY | 2024-11-06 12:26 | XMS_ITS | Clinical Summary ---
Author Organization [facility] Address [address] [place] [address] Care Team Providers Care Physical Education Professor Name Role Phone Unavailable Primary Care Provider [...]
--- OUTSIDE RECORDS SUMMARY | 2024-11-06 12:26 | XMS_ITS | Clinical Summary ---
Author Organization [facility] Address [address] [place] [address] Care Team Providers Care Director Of Accounts Receivable Name Role Phone Unavailable Primary Care Provider Unavailabl e Social History Tobacco Use Types Packs/Day Years Used Date Smoking Tobacco: Never Assessed Sex and Gender Information Value Date Recorded Sex Assigned at Not on file Gender Identity Not on file Sexual Orientation Not on file Plan of Treatment Not on file Scott [employer] Workers Comp Self 1985 [address] [place] [address]
== END 2024-11-06 12:10 | disposition home or self-care (01) ==
LOC: HO.HOP 10:43
PROVIDERS: PCP Family Medicine; Visit Provider Clinical Nurse Specialist Psychiatric/Mental Health
DX: F33.1 Major depressive disorder, recurrent, moderate (principal); F41.1 Generalized anxiety disorder; F41.0 Panic disorder [episodic paroxysmal anxiety]
CPT/HCPCS: 90792

== ENCOUNTER → 2024-11-06 12:34 | Outpatient (BNV) | payer OTHER, SELFPAY | PROVIDERS: PCP Family Medicine; Visit Provider Internal Medicine Cardiovascular Disease | DX: R00.0 Tachycardia, unspecified (principal) | CPT/HCPCS: 93010 ==

== ENCOUNTER 2024-11-21 11:36 | Outpatient (REF) | payer OTHER, SELFPAY ==
--- OUTSIDE RECORDS SUMMARY | 2024-11-21 13:44 | XMS_ITS | Clinical Summary ---
Author Organization [facility] Address [address] [place] [address] Care Team Providers Care Aviation Operations Specialist Name Role Phone Unavailable Primary Care Provider Unavailabl e Social History Tobacco Use Types Packs/Day Years Used Date Smoking Tobacco: Never Assessed Sex and Gender Information Value Date Recorded Sex Assigned at Not on file Legal Sex Male 5:01 PM EDT Gender Identity Not on file Sexual Orientation [...]
--- OUTSIDE RECORDS SUMMARY | 2024-11-21 13:44 | XMS_ITS | Clinical Summary ---
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
[2024-11-21 14:44] LABS: Anion Gap 14 (12-20); Blood Urea Nitrogen 16 mg/dL (9-16); Calcium 9.6 mg/dL (8.4-10.2); Carbon Dioxide 25 mmol/L (22-29); Chloride 106 mmol/L (96-108); Cholesterol 234 mg/dL (<200); Estimated Glomerular Filt Rate > 60; Glucose Fasting 100 mg/dL (60-99); HDL Cholesterol 54 mg/dL (>40); LDL Cholesterol Calculated 138 mg/dL (<100); Potassium 4.2 mmol/L (3.3-5.1); Sodium 141 mmol/L (135-145); Triglycerides 214 mg/dL (<150)
== END 2024-11-21 11:37 | disposition home or self-care (01) ==
LOC: HO.WFDLDS 11:36
PROVIDERS: Visit Provider Family Medicine
DX: Z00.00 Encounter for general adult medical examination without abnormal findings (principal); E78.5 Hyperlipidemia, unspecified
CPT/HCPCS: 36415; 80048; 80061

== ENCOUNTER 2024-12-05 10:50 | Outpatient (AMB) | payer OTHER, SELFPAY ==
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
--- OUTSIDE RECORDS SUMMARY | 2024-12-05 12:15 | XMS_ITS | Clinical Summary ---
Author Organization [facility] Address [address] [place] [address] Care Team Providers Care Plate Stacker Name Role Phone Unavailable Primary Care Provider [...]
--- OUTSIDE RECORDS SUMMARY | 2024-12-05 12:15 | XMS_ITS | Clinical Summary ---
Author Organization [facility] Address [address] [place] [address] Care Team Providers Care Barrel Rifler Broach Name Role Phone Unavailable Primary Care Provider Unavailabl e Social History Tobacco Use Types Packs/Day Years Used Date Smoking Tobacco: Never Assessed Sex and Gender Information Value Date Recorded Sex Assigned at Not on file Gender Identity Not on file Sexual Orientation Not on file Plan of Treatment Not on file [employer] Self 1985 [address] [place] [id number]
== END 2024-12-05 11:51 | disposition home or self-care (01) ==
LOC: HO.HOP 10:50
PROVIDERS: PCP Family Medicine; Visit Provider Clinical Nurse Specialist Psychiatric/Mental Health
DX: F41.1 Generalized anxiety disorder (principal); F41.0 Panic disorder [episodic paroxysmal anxiety]; F33.1 Major depressive disorder, recurrent, moderate; F90.9 Attention-deficit hyperactivity disorder, unspecified type
CPT/HCPCS: 99215

== ENCOUNTER → 2024-12-05 10:50 | Outpatient (BNVA) | payer OTHER, SELFPAY | PROVIDERS: PCP Family Medicine; Visit Provider Clinical Nurse Specialist Psychiatric/Mental Health | DX: F41.1 Generalized anxiety disorder (principal); F41.0 Panic disorder [episodic paroxysmal anxiety]; F33.1 Major depressive disorder, recurrent, moderate; F90.9 Attention-deficit hyperactivity disorder, unspecified type | CPT/HCPCS: 99212 ==

== ENCOUNTER 2025-01-02 10:31 | Outpatient (AMB) | payer OTHER, SELFPAY ==
--- OUTSIDE RECORDS SUMMARY | 2025-01-02 12:17 | XMS_ITS | Clinical Summary ---
Author Organization [facility] Address [address] [place] [address] Care Team Providers Care Roll Skinner Name Role Phone Unavailable Primary Care Provider [...]
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
== END 2025-01-02 10:32 | disposition home or self-care (01) ==
LOC: HO.HOP 10:31
PROVIDERS: PCP Family Medicine; Visit Provider Clinical Nurse Specialist Psychiatric/Mental Health
DX: F90.9 Attention-deficit hyperactivity disorder, unspecified type (principal); F41.1 Generalized anxiety disorder; F41.0 Panic disorder [episodic paroxysmal anxiety]; F33.1 Major depressive disorder, recurrent, moderate
CPT/HCPCS: 99214

== ENCOUNTER → 2025-01-02 10:31 | Outpatient (BNVA) | payer OTHER, SELFPAY | PROVIDERS: PCP Family Medicine; Visit Provider Clinical Nurse Specialist Psychiatric/Mental Health ==

== ENCOUNTER 2025-01-19 09:18 | Outpatient (AMB) | payer OTHER, SELFPAY ==
--- NOTE | 2025-01-19 09:23 | A.OFFPC_ITS ---
Vital Signs 01/19/25 09:26 Height 5 ft 11 in Weight 215 lb BMI 30.0 BP 134/72 Blood Pressure Location Rt brachial Position Sitting Respiration 14 Pulse 114 H Pulse Source Pulse Oximeter Temp 97.9 F Temp Source Oral Pulse Oximetry (%) 97 Oxygen Delivery Method Room Air Intake Visit Reasons: f/u elevated liver enzymes, anxiety/depression Intake Note: Follow anxiety, depression, labs Appliance Service Representative Required: No Allergies No Known Allergies Allergy (Verified 01/19/25 09:32) Medication List - Last Reconciled 01/19/25 by Titus Tatum MD clonazepam 0.5 mg PO BID PRN 1 month lamotrigine (Lamictal) 25 mg orally Take 25mg daily x 10 days then increase to 50mg (2 tabs) daily x 10 days then start taking 100mg (4 tabs )daily; 14 days mirtazapine 30 mg PO BEDTIME omeprazole 20 mg PO DAILY 90 days trazodone 100 mg PO BEDTIME PRN 30 days Tobacco use date assessed: 01/19/25 Dental Screening Dental Screen Date: 01/04/24 HPI f/u elevated liver enzymes, anxiety/depression HPI Details 39 y/o male presents to f/u elevated jamil er enzymes, anxiety/depression. Labs drawn 11/21/24. Reviewed labs with pt. Fasting glucose 100. Triglycerides 214. TC 234. LDL 138. HDL 54. Has not used a medicine for cholesterol in the past. Vitamin D was low at 20.5 ng/mL. 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 Current occupational exposures/hazards: No Cognitive needs: No Hearing needs: No Vision needs: Yes Questionnaire Thrive Questionnaire Date Thrive assessed: 10/06/24 I am a: Patient What is your living situation today?: I have a steady place to live Within the past 12 months, did the food you bought not last and you didn't have the money to get more?: Never true Within the past 12 months, did you worry whether your food would run out before you got money to buy more?: Never true Do you have trouble paying for medicines?: No Do you have trouble getting transportation to medical appointments?: No Do you have trouble paying your heating and electricity bill?: No Do you have trouble taking care of your child, family member or friend?: No Do you have trouble with day-to-day activities such as bathing, preparing meals, shopping, managing finances, etc.?: No Are you currently unemployed and looking for a job?: I choose not to answer this question Are you interested in more education?: No Please select the resources that you would like help with: None Currently or been in a relationship where the following occur: No concerns reported THRIVE Score: 0 AUDIT C Alcohol Use Questionnaire (AUDIT-C) 1. How often do you have a drink containing alcohol?: 2-3 times a week 2. How many drinks containing alcohol do you have on a typical day when you are drinking?: 3 or 4 3. How often do you have six or more drinks on one occasion?: Never Total Score: 4 NETTE-7 AMB Questionnaire NETTE-7 Date NETTE - 7 assessed: 10/13/24 Source: Developed by Drs. Murray Jeter, Ann Vazquez, Kofi Edmondson and colleagues, with an educational charis from [employer]. Review of Systems Const Denies chills, Denies fatigue, Denies fever(s), Denies headache(s) and Denies weakness ENT Denies dizziness and Denies headache(s) Card Denies dyspnea Resp Denies cough, Denies dyspnea, Denies wheezing and Denies other (shortness of breath) Musc Denies numbness and Denies tingling Neuro Denies dizziness, Denies headache(s), Denies numbness, Denies tingling and Denies weakness Psych Reports anxiety and Reports depression Endo Denies fatigue Aller/Immun Denies wheezing Physical exam (Primary Care) Vital Signs: Last Vital Signs Temp 97.9 F 01/19/25 09:26 Pulse 114 H 01/19/25 09:26 Resp 14 01/19/25 09:26 BP 134/72 01/19/25 09:26 Pulse Ox 97 01/19/25 09:26 Oxygen Delivery Method Room Air 01/19/25 09:26 BMI result Body Mass Index 30.0 Tobacco/Smoking Status: Tobacco use Status Tobacco use date assessed 01/19/25 01/19/25 09:34 Patient Tobacco Use Status Former Tobacco user 01/19/25 09:34 e-Cigarette/Vaping Use Never Used 01/19/25 09:34 Thrive Assessment: Date of Thrive Assessment Date Thrive assessed 10/06/24 01/19/25 09:30 Currently or been in a relationship where the following occur: No concerns reported Const General: well developed; No acute distress Nutritional Appearance: well nourished Orientation/consciousness: patient oriented x3 HENMT Head: Yes normocephalic and Yes atraumatic Eyes General: appearance normal, both eyes and all related structures Pupils: Equal, round and reactive pupils present EOM: EOMs intact bilaterally Resp Effort & Inspection: normal respiratory effort Neuro General: patient oriented x3 and gait normal Cranial nerves: Yes Equal, round and reactive pupils present Psych Affect: normal affect Coding Level of Care Code Est Pt Level 4 (38015) Diagnoses Hyperlipidemia E78.5 Elevated ALT measurement R74.01 Hypersomnia G47.10 Low vitamin D level R79.89 Anxiety and depression F41.9; F32.9 Assessment & Plan Assessment & Plan (1) Hyperlipidemia: Code(s): E78.5 - Hyperlipidemia, unspecified Category: Medical Plan: LDL?cholesterol?is?too?high?as?well?as?triglycerides Start?rosuvastatin Will?recheck?lipids?in?3?months (2) Elevated ALT measurement: Code(s): R74.01 - Elevation of levels of liver transaminase levels Category: Medical Plan: Has?had?mildly?elevated?liver?enzymes?in?the?past Recent?weight?gain Check?liver?enzymes?with?next?blood?draw (3) Hypersomnia: Code(s): G47.10 - Hypersomnia, unspecified Category: Medical Plan: Encouraged?patient?to?schedule?sleep?study He?will?think?about (4) Low vitamin D level: Code(s): R79.89 - Other specified abnormal findings of blood chemistry Category: Medical Plan: Low?vitamin-D?level He?has?a?supplement?at?home?that?he?was?not?taking,?and?will?resume?this (5) Anxiety and depression: Code(s): F41.9 - Anxiety disorder, unspecified; F32.9 - Major depressive disorder, single episode, unspecified Category: Medical Plan: Ongoing?anxiety?and?depression?as?well?as?ADD Working?with?[facility]outpatient?psychiatric?consult?provider He?says?she?has?recommended?stimulant?medication ADD?and?we?had?discussion?about?this. Follow-up?with?Stephie Orders: Orders Comprehensive [place]. Panel Fast Today R74.01 - Elevation of levels of liver transaminase levels, Z00.00 - Encounter for general adult medical examination without abnormal findings Lipid Panel Today E78.5 - Hyperlipidemia, unspecified, Z00.00 - Encounter for general adult medical examination without abnormal findings Medications: New rosuvastatin 10 mg PO DAILY 90 tabs 3RF 90 days E78.5 - Hyperlipidemia, unspecified alprazolam (Xanax) MassPat Verified 0.5 mg PO BID PRN 60 tabs 0RF anxiety 30 days Discontinued clonazepam masspat verified Discontinued Reason: Doctor's Order 0.5 mg PO BID 1 month PRN 60 tabs 0RF anxiety
[2025-01-19 09:26] VITALS: BP 134/72; PULSE 114; RESP 14; TEMP 36.6; O2SAT 97
--- OUTSIDE RECORDS SUMMARY | 2025-01-19 09:41 | XMS_ITS | Clinical Summary ---
Author Organization [facility] Address [address] [place] [address] Care Team Providers Care Cloth Printing Utility Worker Name Role Phone Unavailable Primary Care Provider [...]
== END 2025-01-19 10:36 | disposition home or self-care (01) ==
LOC: HO.HMCFM 09:19
PROVIDERS: PCP Family Medicine; Visit Provider Family Medicine
DX: E78.5 Hyperlipidemia, unspecified (principal); R74.01 Elevation of levels of liver transaminase levels; G47.10 Hypersomnia, unspecified; R79.89 Other specified abnormal findings of blood chemistry; F41.9 Anxiety disorder, unspecified; F32.9 Major depressive disorder, single episode, unspecified

== ENCOUNTER → 2025-01-19 09:18 | Outpatient (BNVA) | payer OTHER, SELFPAY | PROVIDERS: PCP Family Medicine; Visit Provider Family Medicine | DX: R74.01 Elevation of levels of liver transaminase levels (principal); E78.5 Hyperlipidemia, unspecified; G47.10 Hypersomnia, unspecified; F41.9 Anxiety disorder, unspecified; F32.9 Major depressive disorder, single episode, unspecified; R79.89 Other specified abnormal findings of blood chemistry | CPT/HCPCS: 99212 ==

== ENCOUNTER 2025-01-23 11:07 | Outpatient (AMB) | payer OTHER, SELFPAY ==
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
--- OUTSIDE RECORDS SUMMARY | 2025-01-23 12:21 | XMS_ITS | Clinical Summary ---
Author Organization [facility] Address [address] [place] [address] Care Team Providers Care Asphalt Smoother Name Role Phone Unavailable Primary Care Provider Unavailabl e Social History Tobacco Use Types Packs/Day Years Used Date Smoking Tobacco: Never Assessed Sex and Gender Information Value Date Recorded Sex Assigned at Not on file Gender Identity Not on file Sexual Orientation Not on file Plan of Treatment Not on file [employer] Workers Comp Self 1985 [address] [place] [address]
--- OUTSIDE RECORDS SUMMARY | 2025-01-23 12:21 | XMS_ITS | Clinical Summary ---
Author Organization [facility] Address [address] [place] [address] Care Team Providers Care Advisory Software Engineer Name Role Phone Unavailable Primary Care Provider [...]
== END 2025-01-23 11:08 | disposition home or self-care (01) ==
LOC: HO.HOP 11:07
PROVIDERS: PCP Family Medicine; Visit Provider Clinical Nurse Specialist Psychiatric/Mental Health
DX: F33.1 Major depressive disorder, recurrent, moderate (principal); F41.1 Generalized anxiety disorder; F41.0 Panic disorder [episodic paroxysmal anxiety]; F90.9 Attention-deficit hyperactivity disorder, unspecified type
CPT/HCPCS: 99214

== ENCOUNTER 2025-02-06 16:16 | Outpatient (AMB) | payer OTHER, SELFPAY ==
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
--- OUTSIDE RECORDS SUMMARY | 2025-02-06 16:46 | XMS_ITS | Clinical Summary ---
Author Organization [facility] Address [address] [place] [address] Care Team Providers Care Relay Operator Name Role Phone Unavailable Primary Care [...]
--- OUTSIDE RECORDS SUMMARY | 2025-02-06 16:46 | XMS_ITS | Clinical Summary ---
Author Organization [facility] Address [address] [place] [address] Care Team Providers Care Aircraft Mechanic Name Role Phone Unavailable Primary Care Provider Unavailabl e Social History Tobacco Use Types Packs/Day Years Used Date Smoking Tobacco: Never Assessed Sex and Gender Information Value Date Recorded Sex Assigned at Not on file Gender Identity Not on file Sexual Orientation Not on file Plan of Treatment Not on file Scott Haider Workers Comp Self 1985 [address] [place] [address]
== END 2025-02-06 16:17 | disposition home or self-care (01) ==
LOC: HO.HOP 16:16
PROVIDERS: PCP Family Medicine; Visit Provider Clinical Nurse Specialist Psychiatric/Mental Health
DX: F33.1 Major depressive disorder, recurrent, moderate (principal); F41.1 Generalized anxiety disorder; F41.0 Panic disorder [episodic paroxysmal anxiety]; F90.2 Attention-deficit hyperactivity disorder, combined type
CPT/HCPCS: 99214

== ENCOUNTER 2025-02-20 11:27 | Outpatient (AMB) | payer OTHER, SELFPAY ==
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
--- OUTSIDE RECORDS SUMMARY | 2025-02-20 12:41 | XMS_ITS | Clinical Summary ---
Author Organization [facility] Address [address] [place] [address] Care Team Providers Care Electric Organ Checker Name Role Phone Unavailable Primary Care Provider Unavailabl e Social History Tobacco Use Types Packs/Day Years Used Date Smoking Tobacco: Never Assessed Sex and Gender Information Value Date Recorded Sex Assigned at Not on file Gender Identity Not on file Sexual Orientation Not on file Plan of Treatment Not on file Scott Haider Workers Comp Self 1985 [address] [place] [address]
--- OUTSIDE RECORDS SUMMARY | 2025-02-20 12:41 | XMS_ITS | Clinical Summary ---
Author Organization [facility] Address [address] [place] [address] Care Team Providers Care Tap Grinder Name Role Phone Unavailable Primary Care Provider [...]
== END 2025-02-20 11:28 | disposition home or self-care (01) ==
LOC: HO.HOP 11:27
PROVIDERS: PCP Family Medicine; Visit Provider Clinical Nurse Specialist Psychiatric/Mental Health
DX: F33.1 Major depressive disorder, recurrent, moderate (principal); F41.1 Generalized anxiety disorder; F41.0 Panic disorder [episodic paroxysmal anxiety]; F90.2 Attention-deficit hyperactivity disorder, combined type
CPT/HCPCS: 99214

== ENCOUNTER 2025-04-10 13:00 | Outpatient (AMB) | payer OTHER, SELFPAY ==
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
--- OUTSIDE RECORDS SUMMARY | 2025-04-10 16:57 | XMS_ITS | Clinical Summary ---
Author Organization [facility] Address [address] [place] [address] Care Team Providers Care Wharf Laborer Name Role Phone Unavailable Primary Care Provider [...] of 3 - 19+ 3-dose series) 2004 HPV Vaccines (1 - 3-dose SCD M series) 2012 COVID-19 Vaccine (2023-2 5 season) 2025 Pneumococcal Vaccine: Pediat rivka (0-5 Years) and At-Risk Patients (6 to 49 Years) Aged Out No longer eligible b ased on patient's age to complete this topic
== END 2025-04-10 13:02 | disposition home or self-care (01) ==
LOC: HO.HOP 13:00
PROVIDERS: PCP Family Medicine; Visit Provider Clinical Nurse Specialist Psychiatric/Mental Health
DX: F33.1 Major depressive disorder, recurrent, moderate (principal); F41.1 Generalized anxiety disorder; F41.0 Panic disorder [episodic paroxysmal anxiety]; F90.2 Attention-deficit hyperactivity disorder, combined type
CPT/HCPCS: 99214

== ENCOUNTER 2025-06-05 11:57 | Outpatient (AMB) | payer OTHER, SELFPAY ==
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
--- OUTSIDE RECORDS SUMMARY | 2025-06-05 13:56 | XMS_ITS | Clinical Summary ---
Author Organization [facility] Address [address] [place] [address] Care Team Providers Care Copyist Name Role Phone Unavailable Primary Care Provider [...] series) 2004 COVID-19 Vaccine (2023-2 5 season) 2025 HPV Vaccines (No Doses Required) Completed Pneumococcal Vaccine: Pediat rivka (0-5 Years) and At-Risk Patients (6 to 49 Years) Aged Out No longer eligible b ased on patient's age to complete this topic
== END 2025-06-05 11:58 | disposition home or self-care (01) ==
LOC: HO.HOP 11:57
PROVIDERS: PCP Family Medicine; Visit Provider Clinical Nurse Specialist Psychiatric/Mental Health
DX: F33.1 Major depressive disorder, recurrent, moderate (principal); F41.1 Generalized anxiety disorder; F41.0 Panic disorder [episodic paroxysmal anxiety]; F90.2 Attention-deficit hyperactivity disorder, combined type
CPT/HCPCS: 99214

== ENCOUNTER 2025-06-11 10:54 | Outpatient (REF) | payer OTHER, SELFPAY ==
[2025-06-11 14:39] LABS: Alanine Aminotransferase 82 U/L (0-40); Albumin Level 3.9 g/dL (3.5-5.0); Alkaline Phosphatase 143 U/L (39-117); Anion Gap 16 (12-20); Aspartate Amino Transferase 99 U/L (5-37); Blood Urea Nitrogen 14 mg/dL (9-16); Calcium 9.7 mg/dL (8.4-10.2); Carbon Dioxide 20 mmol/L (22-29); Chloride 106 mmol/L (96-108); Cholesterol 261 mg/dL (<200); Estimated Glomerular Filt Rate > 60; HDL Cholesterol 36 mg/dL (>40); Potassium 4.2 mmol/L (3.3-5.1); Sodium 138 mmol/L (135-145); Total Protein 7.4 g/dL (6.5-8.0)
[2025-06-11 14:57] LABS: Triglycerides 1903 mg/dL (<150)
== END 2025-06-11 10:55 | disposition home or self-care (01) ==
LOC: HO.WFDLDS 10:54
PROVIDERS: Visit Provider Family Medicine
DX: Z00.00 Encounter for general adult medical examination without abnormal findings (principal); E78.5 Hyperlipidemia, unspecified; R74.01 Elevation of levels of liver transaminase levels
CPT/HCPCS: 36415; 80053; 80061

== ENCOUNTER 2025-06-13 13:36 | Outpatient (REF) | payer OTHER, SELFPAY ==
[2025-06-13 18:57] LABS: Alanine Aminotransferase 64 U/L (0-40); Albumin Level 4.0 g/dL (3.5-5.0); Alkaline Phosphatase 95 U/L (39-117); Anion Gap 16 (12-20); Aspartate Amino Transferase 72 U/L (5-37); Blood Urea Nitrogen 11 mg/dL (9-16); Calcium 8.4 mg/dL (8.4-10.2); Carbon Dioxide 22 mmol/L (22-29); Chloride 103 mmol/L (96-108); Cholesterol 196 mg/dL (<200); Estimated Glomerular Filt Rate > 60; HDL Cholesterol 43 mg/dL (>40); Lipase 10 U/L (8-78); Potassium 3.7 mmol/L (3.3-5.1); Sodium 137 mmol/L (135-145); Total Protein 6.9 g/dL (6.5-8.0); Triglycerides 476 mg/dL (<150)
[2025-06-13 19:44] LABS: Cannabinoid Screen Urine POSITIVE (Not Detect)
[2025-06-13 21:28] LABS: Free T4 (Free Thyroxine) 0.81 ng/dL (0.71-1.85)
[2025-06-18 08:21] LABS: Codeine, Ur NEGATIVE; Hydrocodone, Ur NEGATIVE; Hydromorphone, Ur NEGATIVE; Morphine, Ur NEGATIVE; Norhydrocodone, Ur NEGATIVE; Noroxycodone, Ur NEGATIVE; Oxycodone, Ur NEGATIVE; Oxymorphone, Ur NEGATIVE
== END 2025-06-13 13:37 | disposition home or self-care (01) ==
LOC: HO.WFDLDS 13:36
PROVIDERS: PCP Family Medicine; Visit Provider Family Medicine
DX: Z00.00 Encounter for general adult medical examination without abnormal findings (principal); F41.9 Anxiety disorder, unspecified; F32.9 Major depressive disorder, single episode, unspecified; F41.1 Generalized anxiety disorder; F41.0 Panic disorder [episodic paroxysmal anxiety]; R00.0 Tachycardia, unspecified; E78.5 Hyperlipidemia, unspecified; F90.2 Attention-deficit hyperactivity disorder, combined type; K52.9 Noninfective gastroenteritis and colitis, unspecified; R74.8 Abnormal levels of other serum enzymes; Z72.89 Other problems related to lifestyle; Z79.899 Other long term (current) drug therapy
CPT/HCPCS: 80053; 80061; 80307; 80365; 83690; 84439; 84443; 93005; 96127; 99212; G0480

== ENCOUNTER 2025-06-13 13:36 | Outpatient (AMB) | payer OTHER, SELFPAY ==
--- NOTE | 2025-06-13 13:44 | MHC.PC.OV ---
Vital Signs 06/13/25 13:53 Height 5 ft 11 in Weight 213 lb 6 oz BMI 29.8 BP 126/78 Blood Pressure Location Rt brachial Position Sitting Respiration 16 Pulse 130 H Pulse Source Pulse Oximeter Temp 98.7 F Temp Source Oral Pulse Oximetry (%) 96 Oxygen Delivery Method Room Air Intake Visit Reasons: f/u anxiety/depression, HLD Intake Note: patient is scheduled to follow up for anxiety/depression and lab review Healthcare Financial Analyst Required: No Allergies No Known Allergies Allergy (Verified 06/13/25 13:50) Medication List - Last Reconciled 06/13/25 by Titus Tatum MD alprazolam (Xanax) 0.5 mg PO BID PRN 30 days dexmethylphenidate ER (Focalin XR) 5 mg PO BID lamotrigine (Lamictal) 150 mg PO DAILY mirtazapine 30 mg PO BEDTIME omeprazole 20 mg PO DAILY 90 days rosuvastatin 10 mg PO DAILY 90 days Tobacco use date assessed: 01/19/25 Dental Screening Dental Screen Date: 01/04/24 HPI f/u anxiety/depression, HLD HPI Details 39 y/o male presents to f/u anxiety/depression, labs. Labs drawn 06/11/25. Reviewed labs with pt. Elevated liver enzymes - AST 99, ALT 82. Triglycerides 1903 mg/dL. TC 261. LDL TNP. HDL low at 36. PHQ-9 6, NETTE-7 7 today. Blood pressure today 126/78, 130p. Pt notes ?stomach virus last night with vomiting, diarrhea. HPI Comments History of Present Illness Details Documentation assistance for Titus Tatum MD, was provided by Kenrick Stock,? Commercial Lease Administrator on 06/13/2025 at 2:14 PM EST. I, Dr. Tatum, have read, observed, and verified documentation. ?? 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 1. Little interest or pleasure in doing things: several days 2. Feeling down, depressed, or hopeless: several days 3. Trouble falling or staying asleep, or sleeping too much: several days 4. Feeling tired or having little energy: several days 5. Poor appetite or overeating: several days 6. Feeling bad about yourself - or that you are a failure or have let yourself or your family down: several days 7. Trouble concentrating on things, such as reading the newspaper or watching television: not at all 8. Moving or speaking so slowly that other people could have noticed. Or the opposite - being so fidgety or restless that you have been moving around a lot more than usual: not at all 9. Thoughts that you would be better off or of hurting yourself in some way: not at all Total score: 6 Depression Screening Interpretation: Positive Depression Screening Done: Yes 36040 - PHQ-9 Billing: Yes Source: Developed by Drs. Murray Jeter, Ann Vazquez, Kofi Edmondson and colleagues, with an educational charis from [employer]. Thrive Questionnaire Date Thrive assessed: 10/06/24 I am a: Patient What is your living situation today?: I have a steady place to live Within the past 12 months, did the food you bought not last and you didn't have the money to get more?: Never true Within the past 12 months, did you worry whether your food would run out before you got money to buy more?: Never true Do you have trouble paying for medicines?: No Do you have trouble getting transportation to medical appointments?: No Do you have trouble paying your heating and electricity bill?: No Do you have trouble taking care of your child, family member or friend?: No Do you have trouble with day-to-day activities such as bathing, preparing meals, shopping, managing finances, etc.?: No Are you currently unemployed and looking for a job?: I choose not to answer this question Are you interested in more education?: No Please select the resources that you would like help with: None Currently or been in a relationship where the following occur: No concerns reported THRIVE Score: 0 NETTE-7 AMB Questionnaire NETTE-7 Date NETTE - 7 assessed: 06/13/25 Feeling nervous, anxious, or on edge: 1 = Several days Not being able to stop or control worryin = Several days Worrying too much about different things: 1 = Several days Trouble relaxin = Several days Being so restless that it is hard to sit still: 1 = Several days Becoming easily annoyed or irritable: 1 = Several days Feeling afraid as if something awful might happen: 1 = Several days Total NETTE-7 score (0-4 normal; 5-9 mild; 10-14 moderate; 15-21 severe): 7 Source: Developed by Drs. Murray Jeter, Ann Vazquez, Kofi Edmondson and colleagues, with an educational charis from [employer]. NETTE-7 Assessment Billing NETTE-7 Assessment Tool: NETTE-7 Assessment 39614 Review of Systems Const Denies chills, Denies fatigue, Denies fever(s), Denies headache(s) and Denies weakness ENT Denies dizziness and Denies headache(s) Card Denies dyspnea Resp Denies cough, Denies dyspnea, Denies wheezing and Denies other (shortness of breath) Musc Denies numbness and Denies tingling Neuro Denies dizziness, Denies headache(s), Denies numbness, Denies tingling and Denies weakness Psych Denies anxiety and Denies depression Endo Denies fatigue Aller/Immun Denies wheezing Physical exam (Primary Care) Vital Signs: Last Vital Signs Temp 98.7 F 06/13/25 13:53 Pulse 130 H 06/13/25 13:53 Resp 16 06/13/25 13:53 BP 126/78 06/13/25 13:53 Pulse Ox 96 06/13/25 13:53 Oxygen Delivery Method Room Air 06/13/25 13:53 BMI result Body Mass Index 29.8 Tobacco/Smoking Status: Tobacco use Status Tobacco use date assessed 01/19/25 06/13/25 13:47 Patient Tobacco Use Status Former Tobacco user 06/13/25 13:47 e-Cigarette/Vaping Use Never Used 06/13/25 13:47 PHQ-9: PHQ-9 Score PHQ-9: Total score 6 06/13/25 13:59 Depression Screening Interpretation: Positive Thrive Assessment: Date of Thrive Assessment Date Thrive assessed 10/06/24 06/13/25 13:47 Currently or been in a relationship where the following occur: No concerns reported Const General: well developed; No acute distress Nutritional Appearance: well nourished Orientation/consciousness: patient oriented x3 HENMT Head: Yes normocephalic and Yes atraumatic Eyes General: appearance normal, both eyes and all related structures Pupils: Equal, round and reactive pupils present EOM: EOMs intact bilaterally Resp Effort & Inspection: normal respiratory effort Auscultation: clear to auscultation bilaterally Cardio Rate: tachycardic Rhythm: regular rhythm Heart sounds: S1 normal heart sound present, S2 normal heart sound present, no gallops, no murmurs and no rubs Neuro General: patient oriented x3 and gait normal Cranial nerves: Yes Equal, round and reactive pupils present Psych Affect: normal affect Coding Level of Care Code Est Pt Level 4 (13008) Diagnoses Anxiety and depression F41.9; F32.9 ADHD (attention deficit hyperactivity disorder), combined type F90.2 Hyperlipidemia E78.5 Tachycardia R00.0 Gastroenteritis K52.9 Elevated liver enzymes R74.8 Additional Codes NETTE-7 Assessment Billing - NETTE-7 Assessment Tool: NETTE-7 Assessment 50291 ([id number]) PHQ-9 - 95157 - PHQ-9 Billing: Yes ([id number]) Assessment & Plan Assessment & Plan (1) Anxiety and depression: Code(s): F41.9 - Anxiety disorder, unspecified; F32.9 - Major depressive disorder, single episode, unspecified Category: Medical Plan: History of anxiety And depression. He [place] [facility] [place] He is taking alprazolam lamotrigine and mirtazapine Follow-up with psych as recommended (2) ADHD (attention deficit hyperactivity disorder), combined type: Code(s): F90.2 - Attention-deficit hyperactivity disorder, combined type Category: Medical Plan: Patient is on Focalin Follow-up with [facility] [place] as recommended (3) Hyperlipidemia: Code(s): E78.5 - Hyperlipidemia, unspecified Category: Medical (4) Tachycardia: Code(s): R00.0 - Tachycardia, unspecified Category: Medical (5) Gastroenteritis: Code(s): K52.9 - Noninfective gastroenteritis and colitis, unspecified Category: Medical (6) Elevated liver enzymes: Code(s): R74.8 - Abnormal levels of other serum enzymes Category: Medical Plan Heart rate 130 Patient says he is not feeling well today. Abdominal bloating and discomfort. No significant tenderness to palpation Advised clear liquid diet for today and push fluids. Checking lab work including CMP/Liver enzymes and lipase. Patient denies any significant alcohol use lately. Denies other drugs. Says he medications as prescribed. Focalin can also increase tachycardia. Checking urine drug screen Patient is taking mirtazapine lamotrigine as well as Xanax for mood disorder. He is [place] [facility] [place] team will continue these medications. Follow-up with psych as recommended Triglycerides are extremely high Repeating lab work Starting fenofibrate. Continue rosuvastatin Patient has not eating much due to above gastroenteritis. Rechecking lipids today Orders: Orders Opiates GCMS Expanded, Ur Today F32.9 - Major depressive disorder, single episode, unspecified, F41.9 - Anxiety disorder, unspecified Drug Screen Urine Today F41.0 - Panic disorder [episodic paroxysmal anxiety], F41.1 - Generalized anxiety disorder Ethanol Today F41.0 - Panic disorder [episodic paroxysmal anxiety], F41.1 - Generalized anxiety disorder TSH reflex Free T4 Today R00.0 - Tachycardia, unspecified, Z00.00 - Encounter for general adult medical examination without abnormal findings Comprehensive Met. Panel Today R00.0 - Tachycardia, unspecified Lipid Panel Today E78.5 - Hyperlipidemia, unspecified, Z00.00 - Encounter for general adult medical examination without abnormal findings Lipase Today Z72.89 - Other problems related to lifestyle
[2025-06-13 13:53] VITALS: BP 126/78; PULSE 130; RESP 16; TEMP 37.1; O2SAT 96; BMI 29.8
--- OUTSIDE RECORDS SUMMARY | 2025-06-14 01:38 | XMS_ITS | Clinical Summary ---
Author Organization [facility] Address [address] [place] [address] Care Team Providers Care Stiff Leg Operator Name Role Phone Unavailable Primary Care [...]
--- OUTSIDE RECORDS SUMMARY | 2025-06-14 01:38 | XMS_ITS | Clinical Summary ---
Author Organization [facility] Address [address] [place] [address] Care Team Providers Care Cafeteria Worker Name Role Phone Unavailable Primary Care Provider Unavailabl e Social History Tobacco Use Types Packs/Day Years Used Date Smoking Tobacco: Never Assessed Sex and Gender Information Value Date Recorded Sex Assigned at Not on file Gender Identity Not on file Sexual Orientation Not on file Plan of Treatment Not on file [employer] Workers Comp Self 1985 [address] [place] [id number]
== END 2025-06-13 14:30 | disposition home or self-care (01) ==
LOC: HO.HMCFM 13:37
PROVIDERS: PCP Family Medicine; Visit Provider Family Medicine
DX: F41.9 Anxiety disorder, unspecified (principal); F32.9 Major depressive disorder, single episode, unspecified; F90.2 Attention-deficit hyperactivity disorder, combined type; E78.5 Hyperlipidemia, unspecified; R00.0 Tachycardia, unspecified; K52.9 Noninfective gastroenteritis and colitis, unspecified; R74.8 Abnormal levels of other serum enzymes